=== PATIENT | female | born 1950 | race Caucasian/White ===

== ENCOUNTER 2016-11-12 08:52 | Emergency (ER) | payer OTHER, MEDICARE ==
[~2016-11-12] VITALS: Ht 160 cm; Wt 117.9 kg
[~2016-11-12 08:52] MED LIST: ALAWAY10 ML OPH; AUGMENTIN 875-1 EACH PO; CARDIZEM CD180 M1 PO; COUMADIN1 M1 PO; CRESTOR10 M1 PO; CYCLOBENZAPRINE10 M1 PO; FUROSEMIDE40 M1 PO; GABAPENTIN300 M2 PO; LATANOPROST2.5 ML OPH; LEVEMIR FL100 UNIT/1 SC; LEVSIN0.125 M1 PO; LISINOPRIL10 M1 PO; MEDROL DOSEPAK1 PAC PO; METOPROLOL TAR100 M1 PO; NASONEX17 GM NASB; NEXIUM40 M1 PO; OFLOXACIN5 ML OD; PROAIR HFA0.09 MG/Ac INH; ROBITUSSIN W/CO10 ML PO; WARFARIN SODIUM2 M1 PO; ZITHROMAX Z-PA250 MG PO
[2016-11-12 08:58] VITALS: BP 143/83
[2016-11-12] MEDS ORDERED: ULTRAM50 M1 PO (09:33)
[2016-11-12] MEDS ORDERED: PROAIR HFA8.5 GM INH (09:33)
--- NOTE | 2016-11-12 09:33 | ED THROAT/DENTAL COMPLAINT ---
History of Present Illness General Chief Complaint: Sore Throat, Dental Pain Stated Complaint: EAR PAIN, SORE THROAT, CONGESTION Source: patient Exam Limitations: no limitations Vital Signs & Intake/Output Vital Signs & Intake/Output Vital Signs Date Time Temp Pulse Resp B/P Pulse O2 O2 Flow FiO2 Ox Delivery Rate 11/12 0858 98.7 81 20 143/83 97 Room Air Allergies Coded Allergies: aspirin (NAUSEA 05/26/16) shellfish derived (RED FACED 05/26/16) Reconcile Medications Acetaminophen (Tylenol Extra Strength) 500 MG TABLET 1 TAB PO TID PAIN ( Reported) Albuterol Sulfate (Proair Hfa) 90 MCG HFA.AER.AD 2 PUF INH Q4-6 PRN PRN BREATHING PROBLEMS (Reported) Azithromycin (Zithromax) 250 MG TABLET 1 DP PO AD BRONCHITIS 2 the first day followed by 1 for days 2-5 Cholecalciferol (Vitamin D3) 1,000 UNIT TABLET 1 TAB PO DAILY SUPPLEMENT ( Reported) Ciprofloxacin HCl/Dexameth (Ciprodex Otic Suspension) 0.3 %-0.1 % DROPS.SUSP 4 GTT OT BID OTITIS EXTERNA Cyclobenzaprine HCl 10 MG TABLET 1 TAB PO BID MUSCLE SPASMS (Reported) Diltiazem HCl (Cardizem Cd) 180 MG CAP.ER.24H 1 CAP PO DAILY HEART (Reported) Esomeprazole (Nexium) 40 MG CAPSULE.DR 1 CAP PO DAILY AC GI (Reported) Furosemide 40 MG TABLET 1 TAB PO DAILY DIURETIC (Reported) Gabapentin 300 MG CAPSULE 1 CAP PO TID NERVE PAIN (Reported) Hyoscyamine (Levsin) 0.125 MG TABLET 1 TAB PO TID PRN ABD CRAMPS (Reported) Insulin Detemir (Levemir Flextouch) 100 UNIT/1 ML INSULN.PEN 30 UNITS SC QAM DIABETES (Reported) Latanoprost 2.5 ML DROPS 1 GTT OPH QPM BOTH EYES (Reported) Lisinopril 10 MG TABLET 1 TAB PO DAILY BP (Reported) Meloxicam 7.5 MG TABLET 1 TAB PO DAILY PAIN (Reported) Metoprolol Tartrate 100 MG TABLET 1 TAB PO BID HEART/BP (Reported) Mometasone Furoate (Nasonex) 17 GM SPRAY.PUMP 2 SPRAY NASB DAILY ALLERGIES ( Reported) Multivit-Min/Folic Acid/Biotin (Women Multivit W-Biotin Gummy) 200 MCG-300 MCG TAB.CHEW 1 TAB PO DAILY SUPPLEMENT (Reported) [place]-3 Fatty Acids/Fish Oil (Fish Oil 1,200 MG Softgel) 360 MG-1,200 MG CAPSULE 1 CAP PO BID SUPPLEMENT (Reported) Potassium Chloride 10 MEQ TABLET.ER 1 TAB PO DAILY SUPPLEMENT (Reported) Rosuvastatin Calcium (Crestor) 10 MG TABLET 1 TAB PO DAILY CHOLESTEROL ( Reported) Tramadol HCl (Ultram) 50 MG TABLET 1 TAB PO Q6P PRN PAIN (Reported) Tramadol HCl 50 MG TABLET 1 TAB PO BIDP PRN PAIN Vitamin E Mixed (Vitamin E) 400 UNIT TABLET 1 TAB PO DAILY SUPPLEMENT ( Reported) Warfarin Sodium 2 MG TABLET 1 TAB PO AD BLOOD THINNER (Reported) Warfarin Sodium (Coumadin) 1 MG TABLET 1 TAB PO AD BLOOD THINNER (Reported) Triage Note: 66 Y/O FEMALE C/O URI SYMPTOMS X A FEW WEEKS; FINISHED ANTIBIOTICS 2-3 WEEKS AGO FOR SINUS INFECTION BUT STATES HER SYMPTOMS CONTINUE. C/O COUGH, HEADACHES, CONGESTION AND L EAR PAIN. AFEBRILE. Triage Nurses Notes Reviewed? yes Onset: Gradual Duration: week(s): (FEW) Timing: recent history Injury Environment: home Severity: moderate Associated Symptoms: LEFT EAR PAIN, COUGH, SPUTUM, FACIAL PAIN, HEADACHE HPI: This is a 66 year old female who presents with a prolonged history of symptoms. Prior to placido she started spitting up green sputum and was put on a 10 day course of augmentin. She reports feeling better for a short time but then reports return of symptoms 1 week later. Sore throat, ear ache, cough. Patient reports left sided headache, subjective temperature last night. Positive nausea. Also reports for the past 3 days sputum which is blood tinged. Past History Travel History Traveled to [place] past 21 day No Medical History Any Pertinent Medical History? see below for history Neurological: peripheral neuropathy EENT: glaucoma, ABN AUDITORY PERCEPTION Cardiovascular: AFIB, CHF, hypertension, hyperlipidemia Respiratory: bronchitis, COPD Gastrointestinal: GERD, irritable bowel syndrome Hepatic: NONE Renal: NONE Musculoskeletal: chronic back pain, SHOULDER JOINT PAIN BILATERAL KNEE PAIN Psychiatric: NONE Endocrine: diabetes History of MRSA: No History of VRE: No History of CDIFF: No Pneumonia Vaccine: 09/27/10 Influenza Vaccine: 09/24/10 Tetanus Vaccine: 12/21/12 Surgical History Surgical History: non-contributory Psychosocial History Who do you live with Patient/Self Services at Home None What is your primary language Kiswahili Tobacco Use: Never used Family History Family History, If Any: FATHER (tb, CHF). MOTHER (pancreatic ca). Hx Contributory? No Review of Systems Review of Systems Constitutional: Reports: fever. Denies: chills. EENTM: Reports: ear pain. Respiratory: Reports: cough, sputum production. Cardiovascular: Denies: chest pain. GI: Denies: abdominal pain. Genitourinary: Reports: no symptoms. Musculoskeletal: Reports: no symptoms. Skin: Reports: no symptoms. Neurological/Psychological: Reports: no symptoms. Hematologic/Endocrine: Reports: bleeding (IN SPUTUM). Denies: bruising. Immunologic/Allergic: Denies: splenectomy, HIV/AIDS. All Other Systems: Reviewed and Negative Physical Exam Physical Exam General Appearance: well developed/nourished, alert, awake, anxious, mild distress, TEARFUL ON EXAMINATION Head: atraumatic, normal appearance Eyes: Bilateral: normal appearance, PERRL, EOMI. Ears: Left: discharge, swelling, tenderness, Tympanic dull. Nose: DRIED BLOOD IN RIGHT NARE Mouth/Throat: PHARYNGEAL ERYTHEMA, YELLOW MUCUS IN POSTERIOR PHARYNX Neck: normal inspection, supple, full range of motion Cardiovascular/Respiratory: normal breath sounds, no respiratory distress Neurologic/Psych: no motor/sensory deficits, awake, alert, oriented x 3 Skin: intact, normal color, warm/dry Core Measures ACS in differential dx? No Severe Sepsis Present: No Septic Shock Present: No Progress Differential Diagnosis: SINUSITIS, PHARYNGITIS, OTITIS MEDIA, OTITIS EXTERNA, uri Plan of Care: Orders Procedure Date/time Status THROAT CULTURE W/QUICK STREP 11/12 0837 Active Patient will be treated for otitis externa, URI. Lungs are clear to auscultation. She does have some thick yellow sputum with scant blood when coughing and blowing her nose. Patient is requesting azithromycin as she states the Augmentin did not make her feel well. She states the Z-Eduardo as worked for her in previous instances. (ALBERTA MERCEDES,KAYLA) Departure Departure Time of Disposition: 943 Disposition: HOME OR SELF CARE Condition: Stable Clinical Impression Primary Impression: Otitis externa Secondary Impressions: Sinusitis Referrals: MARCO A HERNANDEZ MD (PCP/Family) Additional Instructions: Take Z-Eduardo as directed. Use the Ciprodex drops as prescribed. Your prescriptions are at [facility]. Follow-up with your primary care doctor in the office, return as needed. Departure Forms: Customer Survey General Discharge Information Prescriptions: Current Visit Scripts Azithromycin (Zithromax) 1 DP PO AD #6 TAB 2 the first day followed by 1 for days 2-5 Ciprofloxacin HCl/Dexameth (Ciprodex Otic Suspension) 4 GTT OT BID #1 BOT Tramadol HCl 1 TAB PO BIDP PRN PAIN #10 TAB
[2016-11-12] MEDS ORDERED: TYLENOL EXTRA500 M2 PO (09:34)
[2016-11-12] MEDS ORDERED: WOMEN MULTIVIT1 EACH PO (09:34)
[2016-11-12] MEDS ORDERED: MELOXICAM7.5 M1 PO (09:36)
[2016-11-12] MEDS ORDERED: POTASSIUM CHLO10 ME4 PO (09:36)
[2016-11-12] MEDS ORDERED: VITAMIN D31000 UNI2 PO (09:37)
[2016-11-12] MEDS ORDERED: VITAMIN E400 UNI2 PO (09:37)
[2016-11-12] MEDS ORDERED: FISH OIL 1,2001 EAC4 PO (09:38)
[2016-11-12] MEDS ORDERED: CIPRODEX OTIC7.5 ML OT (09:46)
[2016-11-12] MEDS ORDERED: ZITHROMAX250 M2 PO (09:46)
[2016-11-12] MEDS ORDERED: TRAMADOL HCL50 M1 PO (09:50)
[2016-11-13] MEDS ORDERED: AUGMENTIN 875-1 EACH PO (14:20)
[2016-11-13] MEDS ORDERED: PERCOCET 5-3251 EACH PO (14:20)
== END 2016-11-12 09:51 ==
LOC: ERH 08:52
DX: J32.9 Chronic sinusitis, unspecified (principal); H60.92 Unspecified otitis externa, left ear

== ENCOUNTER 2016-11-13 10:28 | Emergency (ER) | payer OTHER, MEDICARE ==
[~2016-11-13] VITALS: Ht 160 cm; Wt 74.8 kg
[~2016-11-13 10:28] MED LIST changes: +CIPRODEX OTIC7.5 ML OT; +FISH OIL 1,2001 EAC4 PO; +MELOXICAM7.5 M1 PO; +POTASSIUM CHLO10 ME4 PO; +PROAIR HFA8.5 GM INH; +TRAMADOL HCL50 M1 PO; +TYLENOL EXTRA500 M2 PO; +ULTRAM50 M1 PO; +VITAMIN D31000 UNI2 PO; +VITAMIN E400 UNI2 PO; +WOMEN MULTIVIT1 EACH PO; +ZITHROMAX250 M2 PO
[2016-11-13 11:36] LABS: ABSOLUTE BASOPHIL COUNT 0.1 /CUMM (0.0-0.2); ABSOLUTE EOSINOPHIL COUNT 0 /CUMM (0.0-0.7); ABSOLUTE LYMPH COUNT 1.2 /CUMM (1.2-3.4); BASOPHIL % 0.5 % (0.0-2.0); EOSINOPHIL % 0.2 % (0-5); GRANULOCYTE % 78.1 % (42.2-75.2); HEMATOCRIT 38.7 % (37-47); MEAN CORPUSCULAR HGB 35.5 PG (27.0-31.0); MEAN CORPUSCULAR HGB CONC 33.8 G/DL (33.0-37.0); MEAN CORPUSCULAR VOLUME 105.1 FL (81.0-99.0); MEAN PLATELET VOLUME 8.7 FL (7.4-10.4); PLATELET COUNT 141 /CUMM (130-400); RBC DISTRIBUTION WIDTH 15.8 % (11.5-14.5); RED BLOOD CELL CT 3.69 /CUMM (4.20-5.40); WHITE BLOOD CELL COUNT 10.3 /CUMM (4.8-10.8)
--- NOTE | 2016-11-13 11:45 | ED GENERAL ADULT ---
History of Present Illness General Chief Complaint: General Adult Stated Complaint: BIBA BLOOD COMING FROM MOUTH,EAR,NOSE Source: patient Exam Limitations: no limitations Vital Signs & Intake/Output Vital Signs & Intake/Output Vital Signs Date Time Temp Pulse Resp B/P Pulse O2 O2 Flow FiO2 Ox Delivery Rate 11/13 1410 72 22 118/71 98 11/13 1333 98.1 77 18 125/70 97 Room Air 11/13 1100 96.2 78 18 122/83 96 Room Air Allergies Coded Allergies: aspirin (NAUSEA 05/26/16) shellfish derived (RED FACED 05/26/16) Reconcile Medications Acetaminophen (Tylenol Extra Strength) 500 MG TABLET 1 TAB PO TID PAIN ( Reported) Albuterol Sulfate (Proair Hfa) 90 MCG HFA.AER.AD 2 PUF INH Q4-6 PRN PRN BREATHING PROBLEMS (Reported) Amoxicillin/Potassium Clav (Augmentin 875-125 Tablet) 875 MG-125 MG TABLET 1 TAB PO BID OTITIS EXTERNA Azithromycin (Zithromax) 250 MG TABLET 1 DP PO AD BRONCHITIS 2 the first day followed by 1 for days 2-5 Cholecalciferol (Vitamin D3) 1,000 UNIT TABLET 1 TAB PO DAILY SUPPLEMENT ( Reported) Ciprofloxacin HCl/Dexameth (Ciprodex Otic Suspension) 0.3 %-0.1 % DROPS.SUSP 4 GTT OT BID OTITIS EXTERNA Cyclobenzaprine HCl 10 MG TABLET 1 TAB PO BID MUSCLE SPASMS (Reported) Diltiazem HCl (Cardizem Cd) 180 MG CAP.ER.24H 1 CAP PO DAILY HEART (Reported) Esomeprazole (Nexium) 40 MG CAPSULE.DR 1 CAP PO DAILY AC GI (Reported) Furosemide 40 MG TABLET 1 TAB PO DAILY DIURETIC (Reported) Gabapentin 300 MG CAPSULE 1 CAP PO TID NERVE PAIN (Reported) Hyoscyamine (Levsin) 0.125 MG TABLET 1 TAB PO TID PRN ABD CRAMPS (Reported) Insulin Detemir (Levemir Flextouch) 100 UNIT/1 ML INSULN.PEN 30 UNITS SC QAM DIABETES (Reported) Latanoprost 2.5 ML DROPS 1 GTT OPH QPM BOTH EYES (Reported) Lisinopril 10 MG TABLET 1 TAB PO DAILY BP (Reported) Meloxicam 7.5 MG TABLET 1 TAB PO DAILY PAIN (Reported) Metoprolol Tartrate 100 MG TABLET 1 TAB PO BID HEART/BP (Reported) Mometasone Furoate (Nasonex) 17 GM SPRAY.PUMP 2 SPRAY NASB DAILY ALLERGIES ( Reported) Multivit-Min/Folic Acid/Biotin (Women Multivit W-Biotin Gummy) 200 MCG-300 MCG TAB.CHEW 1 TAB PO DAILY SUPPLEMENT (Reported) [place]-3 Fatty Acids/Fish Oil (Fish Oil 1,200 MG Softgel) 360 MG-1,200 MG CAPSULE 1 CAP PO BID SUPPLEMENT (Reported) Oxycodone HCl/Acetaminophen (Percocet 5-325 MG Tablet) 5 MG-325 MG TABLET 1 TAB PO Q6HR PRN PAIN Potassium Chloride 10 MEQ TABLET.ER 1 TAB PO DAILY SUPPLEMENT (Reported) Rosuvastatin Calcium (Crestor) 10 MG TABLET 1 TAB PO DAILY CHOLESTEROL ( Reported) Tramadol HCl (Ultram) 50 MG TABLET 1 TAB PO Q6P PRN PAIN (Reported) Tramadol HCl 50 MG TABLET 1 TAB PO BIDP PRN PAIN Vitamin E Mixed (Vitamin E) 400 UNIT TABLET 1 TAB PO DAILY SUPPLEMENT ( Reported) Warfarin Sodium 2 MG TABLET 1 TAB PO AD BLOOD THINNER (Reported) Warfarin Sodium (Coumadin) 1 MG TABLET 1 TAB PO AD BLOOD THINNER (Reported) Triage Note: C/O BLEEDING FROM LEFT EAR AND AND THROAT. AND WHILE BRUSHING TEETH THIS AM. SEEN [facility] YESTERDAY FOR SINUS INFECTION. PUT ON ABX, AND EAR DROPS. ALSO C/O LEFT EAR PAIN. Triage Nurses Notes Reviewed? yes Onset: Gradual Duration: day(s): (1) Timing: no prior history Injury Environment: home Severity: moderate Severity Numbers: 8 No Modifying Factors: none HPI: Patient is a 66-year-old female presenting to the emergency department with chief complaint of upper respiratory congestion, left-sided headache thing going on for the past several days. She was seen and evaluated here yesterday diagnosed with an upper respiratory infection and started on a Z-Eduardo. Patient takes Coumadin for A. fib. She reports that overnight the headache became worse and the sinus pressure became worse. She woke up this morning and noticed that she was bleeding from her left ear and her right nostril. Denies any trauma. She reports that the left ear hearing feels muffled. Denies taking anything in her ear. Denies any ringing in the ear. Denies any confusion nausea vomiting fevers or chills. No chest pain or shortness of breath. No abdominal pain. No urinary symptoms here denies any visual changes. No confusion. She called her primary care physician this morning who told her to come to the emergency department immediately for evaluation. (YVONNE HARDY) Past History Travel History Traveled to [place] past 21 day No Medical History Any Pertinent Medical History? see below for history Neurological: peripheral neuropathy EENT: glaucoma, ABN AUDITORY PERCEPTION Cardiovascular: AFIB, CHF, hypertension, hyperlipidemia Respiratory: bronchitis, COPD Gastrointestinal: GERD, irritable bowel syndrome Hepatic: NONE Renal: NONE Musculoskeletal: chronic back pain, SHOULDER JOINT PAIN BILATERAL KNEE PAIN Psychiatric: NONE Endocrine: diabetes History of MRSA: No History of VRE: No History of CDIFF: No Tetanus Vaccine: 12/21/12 Surgical History Surgical History: non-contributory Psychosocial History Who do you live with Patient/Self Services at Home None What is your primary language Khmer Tobacco Use: Never used ETOH Use: occasional use Family History Family History, If Any: FATHER (tb, CHF). MOTHER (pancreatic ca). Hx Contributory? No (YVONNE HARDY) Review of Systems Review of Systems Constitutional: Reports: no symptoms. Comments Review of systems: See HPI, All other systems negative. Constitutional, no chills fever or weight loss HEENT: No visual changes no sore throat Cardiovascular: No chest pain ,palpitation , orthopnea or ankle swelling Skin, no jaundice no rashes Respiratory: No dyspnea cough sputum or hemoptysis GI: No nausea no vomiting : No dysuria No hematuria Muscle skeletal: no back pain, no neck pain, Neurologic: No numbness no confusion Psych: POSITIVE STRESS Heme/endocrine: No bruising no bleeding no polyuria or polydipsia Immunology: No splenectomy or history of AIDS (YVONNE HARDY) Physical Exam Physical Exam General Appearance: well developed/nourished, no apparent distress, alert, awake , comfortable Comments: Well-developed well-nourished person in no acute distress HEENT: extraocular motion intact, no nystagmus. Pupils equally round and reactive to light and accommodation. Right naris has dried blood, no septal hematoma noted. External auditory canal and Tympanic membranE clear on the right side. Unable to visualize left TM secondary to serosanguineous fluid in the external canal.. The external canal on the left is also very erythematous and swollen. Pharynx normal. No swelling or edema. Tenderness to palpation over the preauricular and postauricular area. No redness noted in these areas. Neck: Supple, no lymphadenopathy, normal range of motion without pain or tenderness Back: Nontender Cardiovascular: Regular rate and rhythms no murmurs rubs or gallops, normal JVP Respiratory: Chest nontender. No respiratory distress.breath sounds clear to auscultation bilaterally Abdomen: Soft, obese, nontender nondistended, no appreciable organomegaly. Normal bowel sounds. No ascites Extremity: No edema, full range of motion of upper and lower extremities. Neuro: Alert oriented x3, motor sensory normal, cranial nerves II through XII grossly intact. Cerebellar testing is unremarkable. Skin: No appreciable rash on exposed skin, skin is warm and dry. Psych: Appears anxious, tearful. Core Measures ACS in differential dx? No CVA/TIA Diagnosis: No Severe Sepsis Present: No Septic Shock Present: No (SERGO GALLEGOS,YVONNE) Progress Differential Diagnoses I considered the following diagnoses in my evaluation of the patient: CSF leak, intracranial hemorrhage, mastoiditis, otitis externa, malignant otitis, upper respiratory infection, hypo-coagulopathy Plan of Care: Orders Procedure Date/time Status PROTHROMBIN TIME 11/13 1118 Complete COMPREHENSIVE METABOLIC PANEL 11/13 1118 Complete CBC WITHOUT DIFFERENTIAL 11/13 111 Complete Laboratory Tests 11/13/16 1129: Anion Gap 10, Estimated GFR 56 L, BUN/Creatinine Ratio 18.0, Glucose 162 H, Calcium 9.1, Total Bilirubin 1.0, AST 20, ALT 34, Alkaline Phosphatase 85, Total Protein 6.5, Albumin 3.7, Globulin 2.8, Albumin/Globulin Ratio 1.3, PT 30.4 H, INR 2.93 H, CBC w Diff NO MAN DIFF REQ, RBC 3.69 L, MCV 105.1 H, MCH 35.5 H, RDW 15.8 H, MPV 8.7, Gran % 78.1 H, Lymphocytes % 11.9 L, Monocytes % 9.3, Eosinophils % 0.2, Basophils % 0.5, Absolute Granulocytes 8.0 H, Absolute Lymphocytes 1.2, Absolute Monocytes 1.0 H, Absolute Eosinophils 0, Absolute Basophils 0.1, PUBS MCHC 33.8 Diagnostic Imaging: Viewed by Me: Radiology Read, CT Scan. Discussed w/RAD: Radiology Read, CT Scan. Radiology Impression: ORDERING PHYSICIAN: YVONNE GALLEGOS SERVICE DATE: 11/13/16 EXAM TYPE: CAT - CT HEAD WO IV CONTRAST EXAMINATION: CT HEAD WITHOUT CONTRAST CLINICAL INFORMATION: Coumadin severe left-sided headache COMPARISON: None. TECHNIQUE: Contiguous axial imaging was performed from the skull base to vertex without intravenous administration of contrast. No acute finding. No hemorrhage, midline shift or mass effect. The basal cisterns are patent. The posterior fossa risk grossly within normal limits. No extra-axial collection. IMPRESSION: Negative acute noncontrast CT of the brain., : LOCATION: [facility] ORDERING PHYSICIAN: YVONNE GALLEGOS SERVICE DATE: EXAM TYPE: CAT - CT INT AUD CANALS WO IV CONT EXAMINATION: CT INTERNAL AUDITORY CANALS WITHOUT CONTRAST CLINICAL INFORMATION: Treatment. Severe left-sided headache. Left ear pain. Serosanguineous fluid. COMPARISON: CT scan of the orbits 05/26/2016. TECHNIQUE: Contiguous axial imaging was performed without intravenous administration of contrast. DLP: 156.5 mGy-cm. FINDINGS: Left temporal bone: There is a mixed air and fluid filling the left external auditory canal. There is also near total opacification of the left middle ear cavity and mastoid air cells. The ossicular chain is intact and there is no evidence of coalescence or worrisome osseous erosion. The otic capsule is intact. Labyrinthine structures are normal. The internal auditory canal is unremarkable. Right temporal bone: The external auditory canal is normal and there is no abnormal thickening of the tympanic membrane. The ossicular chain is intact. The middle ear cavity and mastoid air cells are well aerated. The otic capsule is intact. Labyrinthine structures are normal. The internal auditory canal is unremarkable. Other: [id number] paranasal sinus disease is partially visualized within the maxillary sinuses and ethmoid air cells. The temporomandibular joints are symmetric. IMPRESSION: There is near total opacification of the left middle ear cavity and mastoid air cells with fluid or debris within the left external auditory canal. Findings are most consistent with acute otomastoiditis and otitis externa with no evidence of coalescence, ossicular destruction, or worrisome erosive changes. Initial ED EKG: none Comments: Patient was given oxycodone for pain on arrival. Concerned about extensive otitis externa or mastoiditis. Patient will have CT of the head and AUral canals. Patient was informed of all imaging results and lab results. Spoke with , covering ear nose and throat, he feels that this patient has extensive otitis externa, not so much concern at mastoiditis as patient does have. Given her tenderness on exam and external canal is very erythematous and swollen. Patient will be switched to Augmentin. She'll continue Ciprodex that she has artificial that medication. Patient also prescribed pain medication. She has been scheduled for an appointment for 10:15 tomorrow morning and [place] with Dr. Bullock. Patient reports that she will be able to make the appointment. She will return to the emergency department for any worsening symptoms or concerns. (YVONNE HARDY) Departure Departure Time of Disposition: 1420 Disposition: HOME OR SELF CARE Condition: Stable Clinical Impression Primary Impression: Otitis externa Qualifiers: Otitis externa type: unspecified type Laterality: left Chronicity: acute Qualified Code: H60.502 - Unspecified acute noninfective otitis externa, left ear Referrals: WALDEMAR MERCEDES,STAN BULLOCK MD,WOLFGANG HERNANDEZ MD,MARCO A (PCP/Family) Additional Instructions: Follow-up with ear nose and throat doctor tomorrow morning as scheduled. Take Augmentin as prescribed. Stop taking Z-Eduardo. Continue using eardrops, Ciprodex as prescribed. Take Percocet as prescribed for pain. Return for worsening symptoms or concerns. Departure Forms: Customer Survey General Discharge Information Prescriptions: Current Visit Scripts Amoxicillin/Potassium Clav (Augmentin 875-125 Tablet) 1 TAB PO BID #20 TAB Oxycodone HCl/Acetaminophen (Percocet 5-325 MG Tablet) 1 TAB PO Q6HR PRN PAIN #10 TAB (YVONNE HARDY) PA/KITCHEN BATH DESIGNER Co-Sign Statement Statement: ED Attending supervision documentation- x I saw and evaluated the patient. I have also reviewed all the pertinent lab results and diagnostic results. I agree with the findings and the plan of care as documented in the PA's/KITCHEN BATH DESIGNER's documentation. [] I have reviewed the ED Record and agree with the PA's/KITCHEN BATH DESIGNER's documentation. [] Additions or exceptions (if any) to the PAs/KITCHEN BATH DESIGNER's note and plan are summarized below: [] (NORY MERCEDES,ELVIRA) Critical Care Note Critical Care Note Critical Care Time: non-applicable (SERGO GALLEGOS,YVONNE)
[2016-11-13 11:50] LABS: PT 30.4 SEC (9.4-12.5)
--- NOTE | 2016-11-13 13:25 | RADIOLOGY REPORT ---
EXAMINATION: XR PORTABLE CHEST CLINICAL INFORMATION: Coughing up blood COMPARISON: November 01, 2015 TECHNIQUE: Portable view of the chest was obtained. FINDINGS: No significant abnormality is noted involving the heart, lungs, mediastinum, bony thorax or soft tissues. IMPRESSION: No acute disease.
--- NOTE | 2016-11-13 13:35 | CT SCAN REPORT ---
EXAMINATION: CT HEAD WITHOUT CONTRAST CLINICAL INFORMATION: Coumadin severe left-sided headache COMPARISON: None. TECHNIQUE: Contiguous axial imaging was performed from the skull base to vertex without intravenous administration of contrast. No acute finding. No hemorrhage, midline shift or mass effect. The basal cisterns are patent. The posterior fossa risk grossly within normal limits. No extra-axial collection. IMPRESSION: Negative acute noncontrast CT of the brain.
--- NOTE | 2016-11-13 13:55 | CT SCAN REPORT ---
EXAMINATION: CT INTERNAL AUDITORY CANALS WITHOUT CONTRAST CLINICAL INFORMATION: Treatment. Severe left-sided headache. Left ear pain. Serosanguineous fluid. COMPARISON: CT scan of the orbits 05/26/2016. TECHNIQUE: Contiguous axial imaging was performed without intravenous administration of contrast. DLP: 156.5 mGy-cm. FINDINGS: Left temporal bone: There is a mixed air and fluid filling the left external auditory canal. There is also near total opacification of the left middle ear cavity and mastoid air cells. The ossicular chain is intact and there is no evidence of coalescence or worrisome osseous erosion. The otic capsule is intact. Labyrinthine structures are normal. The internal auditory canal is unremarkable. Right temporal bone: The external auditory canal is normal and there is no abnormal thickening of the tympanic membrane. The ossicular chain is intact. The middle ear cavity and mastoid air cells are well aerated. The otic capsule is intact. Labyrinthine structures are normal. The internal auditory canal is unremarkable. Other: [id number] paranasal sinus disease is partially visualized within the maxillary sinuses and ethmoid air cells. The temporomandibular joints are symmetric. IMPRESSION: There is near total opacification of the left middle ear cavity and mastoid air cells with fluid or debris within the left external auditory canal. Findings are most consistent with acute otomastoiditis and otitis externa with no evidence of coalescence, ossicular destruction, or worrisome erosive changes.
[2016-11-13 14:10] VITALS: BP 118/71
[2016-11-13] MEDS ORDERED: PERCOCET 5-3251 EACH PO (14:20)
[2016-11-13] MEDS ORDERED: AUGMENTIN 875-1 EACH PO (14:20)
== END 2016-11-13 14:34 ==
LOC: ERH 10:28
PROVIDERS: Emergency Medicine
DX: H60.92 Unspecified otitis externa, left ear (principal); K13.79 Other lesions of oral mucosa; R51 Headache

== ENCOUNTER 2017-12-24 19:12 | Emergency (ER) | payer OTHER, MEDICARE ==
[~2017-12-24] VITALS: Ht 162.6 cm; Wt 136.1 kg
[~2017-12-24 19:12] MED LIST changes: +KEFLEX500 M1 PO; +PERCOCET 5-3251 EACH PO
[2017-12-24 20:45] LABS: ABSOLUTE BASOPHIL COUNT 0 /CUMM (0.0-0.2); ABSOLUTE EOSINOPHIL COUNT 0.1 /CUMM (0.0-0.7); ABSOLUTE GRANULOCYTE CT 3.8 /CUMM (1.4-6.5); ABSOLUTE LYMPH COUNT 1.6 /CUMM (1.2-3.4); ABSOLUTE MONOCYTE COUNT 0.6 /CUMM (0.10-0.60); BASOPHIL % 0.7 % (0.0-2.0); EOSINOPHIL % 1.8 % (0-5); GRANULOCYTE % 61.8 % (42.2-75.2); HEMATOCRIT 37.7 % (37-47); MEAN CORPUSCULAR HGB 34.9 PG (27.0-31.0); MEAN CORPUSCULAR HGB CONC 33.6 G/DL (33.0-37.0); MEAN PLATELET VOLUME 8.9 FL (7.4-10.4); PLATELET COUNT 137 /CUMM (130-400); RBC DISTRIBUTION WIDTH 14.4 % (11.5-14.5); RED BLOOD CELL CT 3.63 /CUMM (4.20-5.40); WHITE BLOOD CELL COUNT 6.2 /CUMM (4.8-10.8)
--- NOTE | 2017-12-24 23:14 | ED GENERAL ADULT ---
History of Present Illness General Chief Complaint: General Adult Stated Complaint: SIB PCP TO GET AN IV FRO MAGNISIUM BEING 0.9 Source: patient, old records Exam Limitations: no limitations Vital Signs & Intake/Output Vital Signs & Intake/Output Vital Signs Date Time Temp Pulse Resp B/P B/P Pulse O2 O2 Flow FiO2 Mean Ox Delivery Rate 12/24 2335 88 16 121/78 97 Room Air 12/24 1930 97.4 95 18 115/79 97 Room Air ED Intake and Output 12/25 0000 12/24 1200 Intake Total 0 Output Total Balance 0 Intake, Oral 0 Patient 300 lb Weight Allergies Coded Allergies: aspirin (NAUSEA 05/26/16) shellfish derived (RED FACED 05/26/16) Reconcile Medications Acetaminophen (Tylenol Extra Strength) 500 MG TABLET 1 TAB PO TID PAIN ( Reported) Albuterol Sulfate (Proair Hfa) 90 MCG HFA.AER.AD 2 PUF INH Q4-6 PRN PRN BREATHING PROBLEMS (Reported) Amoxicillin/Potassium Clav (Augmentin 875-125 Tablet) 875 MG-125 MG TABLET 1 TAB PO BID OTITIS EXTERNA Azithromycin (Zithromax) 250 MG TABLET 1 DP PO AD BRONCHITIS 2 the first day followed by 1 for days 2-5 Cephalexin (Keflex) 500 MG CAPSULE 1 CAP PO TID CELLULITIS Cholecalciferol (Vitamin D3) 1,000 UNIT TABLET 1 TAB PO DAILY SUPPLEMENT ( Reported) Ciprofloxacin HCl/Dexameth (Ciprodex Otic Suspension) 0.3 %-0.1 % DROPS.SUSP 4 GTT OT BID OTITIS EXTERNA Cyclobenzaprine HCl 10 MG TABLET 1 TAB PO BID MUSCLE SPASMS (Reported) Diltiazem HCl (Cardizem Cd) 180 MG CAP.ER.24H 1 CAP PO DAILY HEART (Reported) Esomeprazole (Nexium) 40 MG CAPSULE.DR 1 CAP PO DAILY AC GI (Reported) Furosemide 40 MG TABLET 1 TAB PO DAILY DIURETIC (Reported) Gabapentin 300 MG CAPSULE 1 CAP PO TID NERVE PAIN (Reported) Hyoscyamine (Levsin) 0.125 MG TABLET 1 TAB PO TID PRN ABD CRAMPS (Reported) Insulin Detemir (Levemir Flextouch) 100 UNIT/1 ML INSULN.PEN 30 UNITS SC QAM DIABETES (Reported) Latanoprost 2.5 ML DROPS 1 GTT OPH QPM BOTH EYES (Reported) Lisinopril 10 MG TABLET 1 TAB PO DAILY BP (Reported) Magnesium Oxide (Magnesium) 400 MG CAPSULE 1 CAP PO DAILY hypomagnesemia Meloxicam 7.5 MG TABLET 1 TAB PO DAILY PAIN (Reported) Metoprolol Tartrate 100 MG TABLET 1 TAB PO BID HEART/BP (Reported) Mometasone Furoate (Nasonex) 17 GM SPRAY.PUMP 2 SPRAY NASB DAILY ALLERGIES ( Reported) Multivit-Min/Folic Acid/Biotin (Women Multivit W-Biotin Gummy) 200 MCG-300 MCG TAB.CHEW 1 TAB PO DAILY SUPPLEMENT (Reported) [place]-3 Fatty Acids/Fish Oil (Fish Oil 1,200 MG Softgel) 360 MG-1,200 MG CAPSULE 1 CAP PO BID SUPPLEMENT (Reported) Oxycodone HCl/Acetaminophen (Percocet 5-325 MG Tablet) 5 MG-325 MG TABLET 1 TAB PO TID PRN PAIN Oxycodone HCl/Acetaminophen (Percocet 5-325 MG Tablet) 5 MG-325 MG TABLET 1 TAB PO Q6HR PRN PAIN Potassium Chloride 10 MEQ TABLET.ER 1 TAB PO DAILY SUPPLEMENT (Reported) Rosuvastatin Calcium (Crestor) 10 MG TABLET 1 TAB PO DAILY CHOLESTEROL ( Reported) Tramadol HCl (Ultram) 50 MG TABLET 1 TAB PO Q6P PRN PAIN (Reported) Tramadol HCl 50 MG TABLET 1 TAB PO BIDP PRN PAIN Vitamin E Mixed (Vitamin E) 400 UNIT TABLET 1 TAB PO DAILY SUPPLEMENT ( Reported) Warfarin Sodium 2 MG TABLET 1 TAB PO AD BLOOD THINNER (Reported) Warfarin Sodium (Coumadin) 1 MG TABLET 1 TAB PO AD BLOOD THINNER (Reported) Core Measure Meds Pre-Hospital coumadin Triage Note: PT TO TRIAGE S/P RECIEVING STANDARD BLOOD WORK RESULTS TODAY WITH A MAGNESIUM OF 0.9. PT WAS TOLD TO COME TO ER BY FOR IV INFUSION AND EKG D/T HX:AFIB AND CHF. PT REPORTS FEELING WELL AND HAS NO COMPLAINTS. Triage Nurses Notes Reviewed? yes Onset: Just prior to arrival Duration: hour(s):, constant, continues in ED Timing: recent history Injury Environment: home Severity: moderate No Modifying Factors: none LMP (ages 10-50): post menopausal : No Patient currently breastfeeds: No HPI: Prior to admission patient referred for repletion of magnesium. She denies fever chills nausea vomiting diarrhea abdominal pain chest pain shortness of breath headache dysuria rash bleeding. Past History Travel History Traveled to [place] past 21 day No Medical History Any Pertinent Medical History? 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 MOTHER (pancreatic ca). Hx Contributory? No Review of Systems Review of Systems Constitutional: Reports: no symptoms. EENTM: Reports: no symptoms. Respiratory: Reports: no symptoms. Cardiovascular: Reports: no symptoms. GI: Reports: no symptoms. Genitourinary: Reports: no symptoms. Musculoskeletal: Reports: no symptoms. Skin: Reports: no symptoms. Neurological/Psychological: Reports: no symptoms. Hematologic/Endocrine: Reports: no symptoms. Immunologic/Allergic: Reports: no symptoms. All Other Systems: Reviewed and Negative Physical Exam Physical Exam General Appearance: well developed/nourished, alert, awake, anxious, obese Head: atraumatic, normal appearance Eyes: Bilateral: normal appearance, PERRL, EOMI. Ears, Nose, Throat: normal pharynx, normal ENT inspection, hearing grossly normal Neck: normal inspection, supple, full range of motion, no midline tenderness Respiratory: normal breath sounds, chest non-tender, no respiratory distress, quiet respiration, lungs clear Cardiovascular: regular rate/rhythm, normal peripheral pulses, norml femoral pulses equa Peripheral Pulses: 4+ carotid (R), 4+ carotid (L) Gastrointestinal: normal bowel sounds, soft, non-tender, no organomegaly Back: normal inspection, normal range of motion, no vertebral tenderness Extremities: normal inspection, normal capillary refill, normal range of motion, no edema Neurologic/Psych: no motor/sensory deficits, awake, alert, oriented x 3, normal gait, normal mood/affect, cuff presser II-XII nml as tested Reflexes: 2+: bicep (R), bicep (L). Skin: intact, normal color, warm/dry Lymphatic: no anterior cervical cande Core Measures ACS in differential dx? No CVA/TIA Diagnosis: No Sepsis Present: No Sepsis Focused Exam Completed? No Progress Differential Diagnoses I considered the following diagnoses in my evaluation of the patient: Hypomagnesemia hypokalemia adverse medication reaction Plan of Care: Orders Procedure Date/time Status TROPONIN LEVEL 12/24 1938 Complete MAGNESIUM 12/24 1938 Complete COMPREHENSIVE METABOLIC PANEL 12/24 1938 Complete CBC WITHOUT DIFFERENTIAL 12/24 1938 Complete EKG 12/24 1931 Active Current Medications Sig/Estella Start time Last Medication Dose Stop Time Status Admin Magnesium Sulfate 2 GM ONCE ONE 12/24 2214 CAN 12/24 2215 Laboratory Tests 12/24/17 2016: Anion Gap 13, Estimated GFR 56 L, BUN/Creatinine Ratio 22.0, Glucose 135 H, Calcium 7.5 L, Magnesium 0.8 *L, Total Bilirubin 0.3, AST 23, ALT 27, Alkaline Phosphatase 53, Troponin I < 0.01, Total Protein 5.2 L, Albumin 3.0 L, Globulin 2.2, Albumin/Globulin Ratio 1.4, CBC w Diff NO MAN DIFF REQ, RBC 3.63 L, MCV 104.0 H, MCH 34.9 H, MCHC 33.6, RDW 14.4, MPV 8.9, Gran % 61.8, Lymphocytes % 26.3, Monocytes % 9.4 H, Eosinophils % 1.8, Basophils % 0.7, Absolute Granulocytes 3.8, Absolute Lymphocytes 1.6, Absolute Monocytes 0.6, Absolute Eosinophils 0.1, Absolute Basophils 0 Initial ED EKG: normal axis, normal intervals, normal p-waves, normal QRS complex, normal sinus rhythm, no ST T wave changes Prior EKG: unchanged Rhythm Strip: normal sinus rhythm Departure Departure Time of Disposition: 304 Disposition: HOME OR SELF CARE Condition: Stable Clinical Impression Primary Impression: Hypomagnesemia Secondary Impressions: Hypokalemia Referrals: Philip MERCEDES,Julius Ren (PCP/Family) Departure Forms: Customer Survey General Discharge Information Prescriptions: Current Visit Scripts Magnesium Oxide (Magnesium) 1 CAP PO DAILY #30 CAP Critical Care Note Critical Care Note Critical Care Time: non-applicable
[2017-12-25] MEDS ORDERED: MAGNESIUM400 M1 PO (03:07)
[2017-12-25 08:18] VITALS: BP 105/67
[2017-12-25] MEDS ORDERED: PANTOPRAZOLE SO40 M1 PO (08:23)
[2017-12-25] MEDS ORDERED: TRAMADOL HCL E100 MG PO (08:23)
== END 2017-12-25 08:26 ==
LOC: ERH 19:12
PROVIDERS: Physician Assistant Medical
DX: E83.42 Hypomagnesemia (principal); E87.6 Hypokalemia; I50.9 Heart failure, unspecified; I10 Essential (primary) hypertension; I48.91 Unspecified atrial fibrillation
CPT/HCPCS: 93005; 93010; 96374

== ENCOUNTER 2018-03-02 15:30 | Emergency (ER) | payer OTHER, MEDICARE ==
[~2018-03-02] VITALS: Ht 160 cm; Wt 120.2 kg
[~2018-03-02 15:30] MED LIST changes: +MAGNESIUM400 M1 PO; +PANTOPRAZOLE SO40 M1 PO; +TRAMADOL HCL E100 MG PO
[2018-03-02 15:54] VITALS: BP 110/64
[2018-03-02 16:36] LABS: ABSOLUTE BASOPHIL COUNT 0 /CUMM (0.0-0.2); ABSOLUTE EOSINOPHIL COUNT 0.1 /CUMM (0.0-0.7); ABSOLUTE GRANULOCYTE CT 5.7 /CUMM (1.4-6.5); ABSOLUTE LYMPH COUNT 1.6 /CUMM (1.2-3.4); ABSOLUTE MONOCYTE COUNT 0.5 /CUMM (0.10-0.60); BASOPHIL % 0.6 % (0.0-2.0); EOSINOPHIL % 0.8 % (0-5); GRANULOCYTE % 72.1 % (42.2-75.2); HEMATOCRIT 43.3 % (37-47); MEAN CORPUSCULAR VOLUME 103.2 FL (81.0-99.0); MEAN PLATELET VOLUME 8.1 FL (7.4-10.4); PLATELET COUNT 239 /CUMM (130-400); RBC DISTRIBUTION WIDTH 14.5 % (11.5-14.5); WHITE BLOOD CELL COUNT 7.9 /CUMM (4.8-10.8)
--- NOTE | 2018-03-02 19:57 | ED ANKLE/FOOT INJURY COMPLAINT ---
History of Present Illness General Chief Complaint: Foot or Ankle Injury Stated Complaint: FOOT PAIN, SENT BY [facility] Source: patient, old records Exam Limitations: no limitations Vital Signs & Intake/Output Vital Signs & Intake/Output Vital Signs Date Time Temp Pulse Resp B/P B/P Pulse O2 O2 Flow FiO2 Mean Ox Delivery Rate 03/02 1554 97.7 94 18 110/64 94 Room Air Allergies Coded Allergies: aspirin (NAUSEA 05/26/16) shellfish derived (RED FACED 05/26/16) Reconcile Medications Albuterol Sulfate (Proair Hfa) 90 MCG HFA.AER.AD 2 PUF INH Q4-6 PRN PRN BREATHING PROBLEMS (Reported) Amoxicillin 250 MG CAPSULE 1 CAP PO TID CELLULITIS Cholecalciferol (Vitamin D3) 1,000 UNIT TABLET 1 TAB PO DAILY SUPPLEMENT ( Reported) Colchicine 0.6 MG TABLET 1 TAB PO BID GOUT Cyclobenzaprine HCl 10 MG TABLET 1 TAB PO BID MUSCLE SPASMS (Reported) Diltiazem HCl (Cardizem Cd) 180 MG CAP.ER.24H 1 CAP PO DAILY HEART (Reported) Furosemide 40 MG TABLET 1 TAB PO DAILY DIURETIC (Reported) Gabapentin 300 MG CAPSULE 1 CAP PO TID NERVE PAIN (Reported) Hyoscyamine (Levsin) 0.125 MG TABLET 1 TAB PO TID PRN ABD CRAMPS (Reported) Insulin Detemir (Levemir Flextouch) 100 UNIT/1 ML INSULN.PEN 30 UNITS SC QAM DIABETES (Reported) Latanoprost 2.5 ML DROPS 1 GTT OPH QPM BOTH EYES (Reported) Lisinopril 10 MG TABLET 1 TAB PO DAILY BP (Reported) Magnesium Oxide (Magnesium) 400 MG CAPSULE 1 CAP PO DAILY hypomagnesemia Meloxicam 7.5 MG TABLET 1 TAB PO DAILY PAIN (Reported) Metoprolol Tartrate 100 MG TABLET 1 TAB PO BID HEART/BP (Reported) Mometasone Furoate (Nasonex) 17 GM SPRAY.PUMP 2 SPRAY NASB DAILY ALLERGIES ( Reported) Multivit-Min/Folic Acid/Biotin (Women Multivit W-Biotin Gummy) 200 MCG-300 MCG TAB.CHEW 1 TAB PO DAILY SUPPLEMENT (Reported) [place]-3 Fatty Acids/Fish Oil (Fish Oil 1,200 MG Softgel) 360 MG-1,200 MG CAPSULE 1 CAP PO BID SUPPLEMENT (Reported) Oxycodone HCl/Acetaminophen (Percocet 5-325 MG Tablet) 5 MG-325 MG TABLET 1-2 TAB PO Q6P PRN PAIN Pantoprazole Sodium 40 MG TABLET.DR 1 TAB PO DAILY GI (Reported) Potassium Chloride 10 MEQ TABLET.ER 1 TAB PO DAILY SUPPLEMENT (Reported) Rosuvastatin Calcium (Crestor) 10 MG TABLET 1 TAB PO DAILY CHOLESTEROL ( Reported) Tramadol HCl (Tramadol HCl ER) 100 MG TAB.ER.24H 1 TAB PO DAILY PAIN ( Reported) Tramadol HCl 50 MG TABLET 1 TAB PO BIDP PRN PAIN Vitamin E Mixed (Vitamin E) 400 UNIT TABLET 1 TAB PO DAILY SUPPLEMENT ( Reported) Warfarin Sodium 2 MG TABLET 1 TAB PO MoWeFr BLOOD THINNER (Reported) Warfarin Sodium (Coumadin) 1 MG TABLET 1 TAB PO SuTuThSa BLOOD THINNER ( Reported) Triage Note: PT TO ER C/C RIGHT FOOT SWELLING AND PAIN X 4 DAYS ?CELLULITIS. AFEBRILE. WAS SEEN AT PAIN CLINIC EARLIER TODAY AND WAS ASSESSED. Triage Nurses Notes Reviewed? yes HPI: Patient presents with pain, redness and swelling to her right pinky toe. Symptoms started approximately 3 days ago. There is no known injury. Patient states the pain is worse when she is up and walking or sitting and the pain decreases when she is laying down with her foot elevated. There is no radiation of the pain. The pain is throbbing in nature. Patient was seen by her pain management doctor as well as her personnel adviser today and they both recommended that she come to the emergency department for evaluation. Patient is on Coumadin and the last time INR was checked was a few weeks ago and was normal and she is due to have another INR on Friday. Patient is unsure if she is ever had any pain and swelling to her great toe. Past History Travel History Traveled to [place] past 21 day No Medical History Any Pertinent Medical History? 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 MOTHER (pancreatic ca). Hx Contributory? No Review of Systems Review of Systems Constitutional: Reports: no symptoms. Respiratory: Reports: no symptoms. Cardiovascular: Reports: no symptoms. GI: Reports: no symptoms. Musculoskeletal: Reports: see HPI. Neurological/Psychological: Reports: no symptoms. Hematologic/Endocrine: Reports: no symptoms. Immunologic/Allergic: Reports: no symptoms. Physical Exam Physical Exam General Appearance: well developed/nourished, alert, awake, mild distress Eyes: Bilateral: PERRL, EOMI. Neck: normal inspection, supple, full range of motion Cardiovascular/Respiratory: normal breath sounds, normal peripheral pulses, regular rate/rhythm, no respiratory distress Leg/Knee/Thigh Left: normal range of motion, normal inspection Leg/Knee/Thigh Right: normal range of motion, normal inspection Foot Right: ERYTHEMA AND SWELLING TO RIGHT PINKY TOE. tHERE IS NO TRACKING ERYTHEMA. Neuro/Vascular: normal motor function, normal sensation Psychiatric: awake, alert, oriented x 3 Progress Differential Diagnosis: cellulitis, gout, sprain, contusion Plan of Care: Orders Procedure Date/time Status BLOOD CULTURE 03/02 1536 Active URIC ACID 03/02 1536 Complete TROPONIN LEVEL 03/02 1536 Complete LACTIC ACID 03/02 1536 Complete WESTERGREN SED RATE 03/02 1536 Complete C-REACTIVE PROTEIN 03/02 1536 Complete COMPREHENSIVE METABOLIC PANEL 03/02 1536 Complete CBC WITHOUT DIFFERENTIAL 03/02 1536 Complete Laboratory Tests 03/02/18 1836: Lactic Acid Cancelled 03/02/18 1615: CBC w Diff NO MAN DIFF REQ, RBC 4.20, MCV 103.2 H, MCH 34.0 H, MCHC 33.0, RDW 14.5, MPV 8.1, Gran % 72.1, Lymphocytes % 19.6 L, Monocytes % 6.9, Eosinophils % 0.8, Basophils % 0.6, Absolute Granulocytes 5.7, Absolute Lymphocytes 1.6, Absolute Monocytes 0.5, Absolute Eosinophils 0.1, Absolute Basophils 0, ESR W[place]gren 50 H 03/02/18 1605: Anion Gap 19 H, Estimated GFR 45 L, BUN/Creatinine Ratio 22.5, Glucose 163 H, Lactic Acid 1.9, Uric Acid 11.4 H, Calcium 10.1, Total Bilirubin 0.8, AST 30, ALT 21, Alkaline Phosphatase 110, Troponin I < 0.01, C-Reactive Prot, Quant 2.6 H, Total Protein 7.4, Albumin 4.7, Globulin 2.7, Albumin/Globulin Ratio 1.7 Microbiology 03/02 1605 BLOOD: Blood Culture - RECD 03/02 1536 BLOOD: Blood Culture - ORD Diagnostic Imaging: Viewed by Me: Radiology Read. Discussed w/RAD: Radiology Read. Radiology Impression: PATIENT: JONATHAN YOUSIF PRESENT AGE: 67 PATIENT ACCOUNT NO: [id number] : 52 LOCATION: [facility] ORDERING PHYSICIAN: Julius Thomas MD SERVICE DATE: 03/02/18 EXAM TYPE: RAD - XRY-TOES, RIGHT EXAMINATION: XR TOES, RIGHT CLINICAL INFORMATION: Pain and swelling. Evaluate for fracture. COMPARISON: None TECHNIQUE: 3 views of the right toes were obtained. FINDINGS: Diffuse, nonspecific soft tissue swelling of the visualized lower leg, ankle and foot. No soft tissue gas or radiopaque foreign body. Bones have normal alignment. No evidence of acute fracture, subluxation, osseous erosion or periostitis. Small osteophytes are observed at the mildly degenerated first tarsometatarsal joint and first metatarsophalangeal joint. IMPRESSION: 1. No acute osseous injury within the right foot. 2. Diffuse, nonspecific soft tissue swelling of the visualized leg, ankle and foot. 3. 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 DICTATED BY: Jordan Elam MD DATE/TIME DICTATED:03/02/182026 DINKEY DRIVER:AJITH DATE/TIME TRANSCRIBED:03/02/182026 CONFIDENTIAL, DO NOT COPY WITHOUT APPROPRIATE AUTHORIZATION. <Electronically signed in Other Vendor System> SIGNED BY: Jordan Elam MD 03/02/182033 Departure Departure Disposition: HOME OR SELF CARE Condition: Stable Clinical Impression Primary Impression: Cellulitis Secondary Impressions: Gout Referrals: Juilus Palacios MD (PCP/Family) Additional Instructions: It is hard to tell if this is skin infection or if it is gout. At this point it is best if we treat for both. Take the colchicine twice a day for 10 days, take the antibiotic as prescribed. Have her Coumadin level checked on Friday. Return if symptoms worsen or for any concerns. Departure Forms: Customer Survey General Discharge Information Prescriptions: Current Visit Scripts Amoxicillin 1 CAP PO TID #30 CAP Colchicine 1 TAB PO BID #20 TAB Oxycodone HCl/Acetaminophen (Percocet 5-325 MG Tablet) 1-2 TAB PO Q6P PRN PAIN #16 TAB
--- NOTE | 2018-03-02 20:34 | RADIOLOGY REPORT ---
EXAMINATION: XR TOES, RIGHT CLINICAL INFORMATION: Pain and swelling. Evaluate for fracture. COMPARISON: None TECHNIQUE: 3 views of the right toes were obtained. FINDINGS: Diffuse, nonspecific soft tissue swelling of the visualized lower leg, ankle and foot. No soft tissue gas or radiopaque foreign body. Bones have normal alignment. No evidence of acute fracture, subluxation, osseous erosion or periostitis. Small osteophytes are observed at the mildly degenerated first tarsometatarsal joint and first metatarsophalangeal joint. IMPRESSION: 1. No acute osseous injury within the right foot. 2. Diffuse, nonspecific soft tissue swelling of the visualized leg, ankle and foot. 3. 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
[2018-03-02] MEDS ORDERED: PERCOCET 5-3251 EACH PO (21:12)
[2018-03-02] MEDS ORDERED: AMOXICILLIN250 M3 PO (21:12)
[2018-03-02] MEDS ORDERED: COLCHICINE0.6 M2 PO (21:12)
== END 2018-03-02 22:00 ==
LOC: ERH 15:30 → ENTRNSPT 21:42 → EDTRNSPTSTS 21:48 → EDTRNSPT 21:48 → ERH 22:00 → CMPTRNSPT 22:03
PROVIDERS: Physician Assistant Medical
DX: L03.115 Cellulitis of right lower limb (principal); M10.9 Gout, unspecified; Z79.01 Long term (current) use of anticoagulants
CPT/HCPCS: 73660-RT; 87040

== ENCOUNTER 2018-03-20 21:22 | Inpatient (IN) | payer OTHER, MEDICARE ==
[~2018-03-20] VITALS: Ht 160 cm; Wt 127.5 kg
[~2018-03-20 21:22] MED LIST changes: +AMOXICILLIN250 M3 PO; +COLCHICINE0.6 M2 PO
--- NOTE | 2018-03-20 21:27 | ED GI/GU/ABDOMINAL COMPLAINT ---
History of Present Illness General Chief Complaint: Abdominal Pain/Flank Pain Stated Complaint: DARK STOOLS Source: patient, EMS Exam Limitations: no limitations Vital Signs & Intake/Output Vital Signs & Intake/Output Vital Signs Date Time Temp Pulse Resp B/P B/P Pulse O2 O2 Flow FiO2 Mean Ox Delivery Rate 03/20 2209 96 Room Air 03/20 2208 76 129/74 03/20 2137 97.2 76 18 133/69 96 Room Air Allergies Coded Allergies: aspirin (NAUSEA 05/26/16) colchicine (SEVERE DIARRHEA 03/20/18) shellfish derived (RED FACED 05/26/16) Reconcile Medications Albuterol Sulfate (Proair Hfa) 90 MCG HFA.AER.AD 2 PUF INH Q4-6 PRN PRN BREATHING PROBLEMS (Reported) Cholecalciferol (Vitamin D3) 1,000 UNIT TABLET 1 TAB PO DAILY SUPPLEMENT ( Reported) Cyclobenzaprine HCl 10 MG TABLET 1 TAB PO BID MUSCLE SPASMS (Reported) Diltiazem HCl (Cardizem Cd) 180 MG CAP.ER.24H 1 CAP PO DAILY HEART (Reported) Furosemide 40 MG TABLET 1 TAB PO DAILY DIURETIC (Reported) Gabapentin 300 MG CAPSULE 1 CAP PO TID NERVE PAIN (Reported) Hyoscyamine (Levsin) 0.125 MG TABLET 1 TAB PO TID PRN ABD CRAMPS (Reported) Insulin Detemir (Levemir Flextouch) 100 UNIT/1 ML INSULN.PEN 30 UNITS SC QAM DIABETES (Reported) Latanoprost 2.5 ML DROPS 1 GTT OPH QPM BOTH EYES (Reported) Lisinopril 10 MG TABLET 1 TAB PO DAILY BP (Reported) Magnesium Oxide (Magnesium) 400 MG CAPSULE 1 CAP PO DAILY hypomagnesemia Meloxicam 7.5 MG TABLET 1 TAB PO DAILY PAIN (Reported) Metoprolol Tartrate 100 MG TABLET 1 TAB PO BID HEART/BP (Reported) Mometasone Furoate (Nasonex) 17 GM SPRAY.PUMP 2 SPRAY NASB DAILY ALLERGIES ( Reported) Multivit-Min/Folic Acid/Biotin (Women Multivit W-Biotin Gummy) 200 MCG-300 MCG TAB.CHEW 1 TAB PO DAILY SUPPLEMENT (Reported) [place]-3 Fatty Acids/Fish Oil (Fish Oil 1,200 MG Softgel) 360 MG-1,200 MG CAPSULE 1 CAP PO BID SUPPLEMENT (Reported) Pantoprazole Sodium 40 MG TABLET.DR 1 TAB PO DAILY GI (Reported) Potassium Chloride 10 MEQ TABLET.ER 1 TAB PO DAILY SUPPLEMENT (Reported) Rosuvastatin Calcium (Crestor) 10 MG TABLET 1 TAB PO DAILY CHOLESTEROL ( Reported) Tramadol HCl (Tramadol HCl ER) 200 MG TAB.ER.24H 1 TAB PO QAM PAIN (Reported) Tramadol HCl 50 MG TABLET 1 TAB PO BIDP PRN PAIN Vitamin E Mixed (Vitamin E) 400 UNIT TABLET 1 TAB PO DAILY SUPPLEMENT ( Reported) Warfarin Sodium 2 MG TABLET 1 TAB PO MoWeFr BLOOD THINNER (Reported) Warfarin Sodium (Coumadin) 1 MG TABLET 1 TAB PO SuTuThSa BLOOD THINNER ( Reported) Triage Nurses Notes Reviewed? yes ? N Is pt currently ? No Onset: Gradual Duration: day(s):, waxing and waning Timing: recent history Radiation: no radiation Modifying Factors: Worsens With: other (DARK STOOL). Associated Symptoms: WEAKNESS HPI: 67 yo woman, h/o afib, on coumadin, presents with weakness and dark stool for the past 2-3 days. She notes, "I noticed the dark stool.. and I've been feeling a bit weak.... otherwise I'm okay." No chest pain, shortness of breath, abdominal pain, chest pain. Past History Medical History Any Pertinent Medical History? 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 MOTHER (pancreatic ca). Hx Contributory? No Review of Systems Review of Systems Constitutional: Reports: no symptoms. EENTM: Reports: no symptoms. Respiratory: Reports: no symptoms. Cardiovascular: Reports: no symptoms. GI: Reports: no symptoms. Genitourinary: Reports: no symptoms. Musculoskeletal: Reports: no symptoms. Skin: Reports: no symptoms. Neurological/Psychological: Reports: no symptoms. Hematologic/Endocrine: Reports: no symptoms. Immunologic/Allergic: Reports: no symptoms. All Other Systems: Reviewed and Negative Physical Exam Physical Exam General Appearance: well developed/nourished, no apparent distress Head: atraumatic, normal appearance Eyes: Bilateral: normal appearance. Ears, Nose, Throat, Mouth: hearing grossly normal, moist mucous membrane Gastrointestinal: normal bowel sounds, soft, non-tender, no organomegaly Comments: Review of Systems - except as otherwise noted in HPI Review of Systems Constitutional:no symptoms. EENTM:no symptoms. Respiratory:no symptoms. Cardiovascular:no symptoms. GI:no symptoms. Genitourinary:no symptoms. Musculoskeletal:no symptoms. Skin:no symptoms. Neurological/Psychological:no symptoms. Hematologic/Endocrine:no symptoms. Immunologic/Allergic:no symptoms. All Other Systems: Reviewed and Negative Physical Exam Physical Exam General Appearance: well developed/nourished, no apparent distress Head: atraumatic, normal appearance Eyes: Bilateral: normal appearance. Ears, Nose, Throat: normal pharynx, normal ENT inspection Neck: normal inspection, supple, full range of motion Respiratory: normal breath sounds, chest non-tender, no respiratory distress, quiet respiration, lungs clear Cardiovascular: regular rate/rhythm Gastrointestinal: normal bowel sounds, soft, non-tender, no organomegaly Back: normal inspection, normal range of motion Extremities: normal inspection, normal capillary refill, normal range of motion, no edema Neurologic/Psych: no motor/sensory deficits, awake, alert, oriented x 3 Skin: intact, normal color, warm/dry Rectal exam: dark stook, guiac + Core Measures ACS in differential dx? No Sepsis Present: No Sepsis Focused Exam Completed? No Progress Differential Diagnosis: lower gi bleed vs other. Plan of Care: Orders Procedure Date/time Status Nothing by Mouth 03/21 B Active Saline Lock 03/20 2248 Active Misc Message 03/20 2248 Active ED Holding Orders 03/20 2248 Active Admit to inpatient 03/20 2248 Active Vital Signs 03/20 2248 Active Code Status 03/20 2248 Active MISTAKE 03/20 2153 Active PARTIAL THROMBOPLASTIN TIME 03/20 2127 Complete PROTHROMBIN TIME 03/20 2127 Complete COMPREHENSIVE METABOLIC PANEL 03/20 2127 Complete CBC WITHOUT DIFFERENTIAL 03/20 2127 Complete EKG 03/20 2127 Active TYPE & SCREEN (NOT X-MATCH) 03/20 2127 Complete Current Medications Sig/Estella Start time Last Medication Dose Stop Time Status Admin Pantoprazole Sodium 40 MG Q5H 03/20 2300 UNVr (Protonix) Sodium Chloride 100 ML (Normal Saline 0.9%) Sodium Chloride 1,000 ML BOLUS ONE 03/20 2245 AC (Normal Saline 0.9%) 03/20 2344 Laboratory Tests 03/20/182153: Anion Gap 20 H, Estimated GFR 24 L, BUN/Creatinine Ratio 19.0, Glucose 140 H, Calcium 9.3, Total Bilirubin 0.8, AST 33, ALT 23, Alkaline Phosphatase 91, Total Protein 6.3, Albumin 3.8, Globulin 2.5, Albumin/Globulin Ratio 1.5, PT 60.4 *H, INR 5.45 *H, APTT 57 H, CBC w Diff NO MAN DIFF REQ, RBC 3.35 L, MCV 101.6 H, MCH 34.7 H, MCHC 34.2, RDW 15.7 H, MPV 8.3, Gran % 52.0, Lymphocytes % 32.0, Monocytes % 8.7, Eosinophils % 6.5 H, Basophils % 0.8, Absolute Granulocytes 2.6, Absolute Lymphocytes 1.6, Absolute Monocytes 0.4, Absolute Eosinophils 0.3, Absolute Basophils 0 Diagnostic Imaging: Viewed by Me: Radiology Read. Discussed w/RAD: Radiology Read. CXR Impression: PATIENT: JONATHAN YOUSIF PRESENT AGE: 67 PATIENT ACCOUNT NO: [id number] : 52 LOCATION: [facility] ORDERING PHYSICIAN: Will Fuentes MD SERVICE DATE: 03/20/18 EXAM TYPE: RAD - XRY- PORTABLE CHEST XRAY EXAMINATION: XR PORTABLE CHEST CLINICAL INFORMATION: Atrial fibrillation. Dyspnea COMPARISON: 11/13/16 TECHNIQUE: Portable frontal view of the chest was obtained. FINDINGS: Extreme upper chest excluded. There may be some tortuosity of the aorta. The cardiac size is unchanged. The left hilum is obscured. No change in the right hilum. Some increased density in the right base medially is unchanged. The lower lung zones are difficult to assess due to habitus and technique. No acute consolidation. No pneumothorax. IMPRESSION: Limited assessment of the lower lungs. No definite acute pneumonia or edema. DICTATED BY: Johnson Luque MD DATE/TIME DICTATED:03/20/182227 ARM REST BUILDER:AJITH DATE/TIME TRANSCRIBED:03/20/182227 CONFIDENTIAL, DO NOT COPY WITHOUT APPROPRIATE AUTHORIZATION. <Electronically signed in Other Vendor System> SIGNED BY: Johnson Luque MD 03/20/182233 Initial ED EKG: afib, no acute changes. Departure Departure Disposition: STILL A PATIENT Condition: Stable Clinical Impression Primary Impression: GI bleed Secondary Impressions: Elevated serum creatinine Referrals: Julius Palacios MD (PCP/Family) Departure Forms: Customer Survey General Discharge Information Comments 03/20/18, 23:01...discussed with dr. sharma (GI), pt to be placed on protonix gtt, likely endoscopy in the AM. Admission Note Spoke With: Son MERCEDES,[facility] Documentation of Exam: Documentation of any treatments & extenuating circumstances including Concerns Regarding Discharge (functional status, medication knowledge or non-compliance, living conditions, etc.) that warrant an admission rather than observation: pt with lower gi bleed on coumadin for afib, hct stable, pt orthostatic, barely, with stable BP... pt to be placed in ICU for likely endoscopy in the AM. Critical Care Note Critical Care Note Critical Care Time: 30-74 min
[2018-03-20] MEDS ORDERED: TRAMADOL HCL E200 MG PO (22:09)
[2018-03-20 22:10] LABS: ABSOLUTE BASOPHIL COUNT 0 /CUMM (0.0-0.2); ABSOLUTE EOSINOPHIL COUNT 0.3 /CUMM (0.0-0.7); ABSOLUTE GRANULOCYTE CT 2.6 /CUMM (1.4-6.5); ABSOLUTE LYMPH COUNT 1.6 /CUMM (1.2-3.4); ABSOLUTE MONOCYTE COUNT 0.4 /CUMM (0.10-0.60); BASOPHIL % 0.8 % (0.0-2.0); EOSINOPHIL % 6.5 % (0-5); HEMATOCRIT 34.1 % (37-47); MEAN CORPUSCULAR HGB 34.7 PG (27.0-31.0); MEAN CORPUSCULAR HGB CONC 34.2 G/DL (33.0-37.0); MEAN CORPUSCULAR VOLUME 101.6 FL (81.0-99.0); MEAN PLATELET VOLUME 8.3 FL (7.4-10.4); PLATELET COUNT 129 /CUMM (130-400); RBC DISTRIBUTION WIDTH 15.7 % (11.5-14.5); RED BLOOD CELL CT 3.35 /CUMM (4.20-5.40); WHITE BLOOD CELL COUNT 5.1 /CUMM (4.8-10.8)
[2018-03-20 22:15] LABS: PTT 57 SEC (25-37)
[2018-03-20 22:33] LABS: PT 60.4 SEC (9.4-12.5)
--- NOTE | 2018-03-20 22:34 | RADIOLOGY REPORT ---
EXAMINATION: XR PORTABLE CHEST CLINICAL INFORMATION: Atrial fibrillation. Dyspnea COMPARISON: 11/13/16 TECHNIQUE: Portable frontal view of the chest was obtained. FINDINGS: Extreme upper chest excluded. There may be some tortuosity of the aorta. The cardiac size is unchanged. The left hilum is obscured. No change in the right hilum. Some increased density in the right base medially is unchanged. The lower lung zones are difficult to assess due to habitus and technique. No acute consolidation. No pneumothorax. IMPRESSION: Limited assessment of the lower lungs. No definite acute pneumonia or edema.
--- NOTE | 2018-03-20 23:06 | History & Physical ---
Leonel MERCEDES,[facility] 03/20/18 4336: General Information and HPI MD Statement: I have seen and personally examined JONATHAN YOUSIF and documented this H&P. The patient is a 67 year old F who presented with a patient stated chief complaint of GI bleed. Source of Information: patient Exam Limitations: no limitations History of Present Illness: The patient is a 53-year-old female with a past medical history of atrial fibrillation on coumadin, hypertension, hyperlipidemia, COPD, diabetes, CHF (EF 55%, 2015), IBS diarrhea predominant, with a recent history of taking meloxicam and then Naproxen presents to [facility] after being sent by coumading clinic for evaluation of "bruises". She reports that she called her Coumadin clinic regarding her worsening skin bruises, and when she was asked whether she was having any blood in stool or black tarry stools, she reported she has had about 3 day history of dark stools. The Coumadin clinic thenn instructed her to go to [facility] for further evaluation. Patient is not exactly clear on the details of her bowel movement, was moderately anxious during the interview. She states that mostly her stools have been dark for the past three days, but also reported in some incidents, there was some "streaks of blood" on both the tissue paper and on stools. She denied any pain during bowel movements or any unusual or strong odor in her stools. Denies any constipation and actually reports chronic diarrhea from IBS, no abdominal pain,hematemesis, or increased heartburn (she is on a PPI at home). Patient has been seen by the GI service by Dr Corona for heart burn and abdominal pain, EGD done in 2012 was only remarkable for chronic duodenitis and chronic antral gastritis. The same year she also underwent a colonoscopy which was positive for 2 benign tubular adenoma and no invasive carcinoma. Allergies/Medications Allergies: Coded Allergies: aspirin (NAUSEA 05/26/16) colchicine (SEVERE DIARRHEA 03/20/18) shellfish derived (RED FACED 05/26/16) Home Med list Albuterol Sulfate (Proair Hfa) 90 MCG HFA.AER.AD 2 PUF INH Q4-6 PRN PRN BREATHING PROBLEMS (Reported) Cholecalciferol (Vitamin D3) 1,000 UNIT TABLET 1 TAB PO DAILY SUPPLEMENT ( Reported) Cyclobenzaprine HCl 10 MG TABLET 1 TAB PO BID MUSCLE SPASMS (Reported) Diltiazem HCl (Cardizem Cd) 180 MG CAP.ER.24H 1 CAP PO DAILY HEART (Reported) Furosemide 40 MG TABLET 1 TAB PO DAILY DIURETIC (Reported) Gabapentin 300 MG CAPSULE 1 CAP PO TID NERVE PAIN (Reported) Hyoscyamine (Levsin) 0.125 MG TABLET 1 TAB PO TID PRN ABD CRAMPS (Reported) Insulin Detemir (Levemir Flextouch) 100 UNIT/1 ML INSULN.PEN 30 UNITS SC QAM DIABETES (Reported) Latanoprost 2.5 ML DROPS 1 GTT OPH QPM BOTH EYES (Reported) Lisinopril 10 MG TABLET 1 TAB PO DAILY BP (Reported) Magnesium Oxide (Magnesium) 400 MG CAPSULE 1 CAP PO DAILY hypomagnesemia Meloxicam 7.5 MG TABLET 1 TAB PO DAILY PAIN (Reported) Metoprolol Tartrate 100 MG TABLET 1 TAB PO BID HEART/BP (Reported) Mometasone Furoate (Nasonex) 17 GM SPRAY.PUMP 2 SPRAY NASB DAILY ALLERGIES ( Reported) Multivit-Min/Folic Acid/Biotin (Women Multivit W-Biotin Gummy) 200 MCG-300 MCG TAB.CHEW 1 TAB PO DAILY SUPPLEMENT (Reported) [place]-3 Fatty Acids/Fish Oil (Fish Oil 1,200 MG Softgel) 360 MG-1,200 MG CAPSULE 1 CAP PO BID SUPPLEMENT (Reported) Pantoprazole Sodium 40 MG TABLET.DR 1 TAB PO DAILY GI (Reported) Potassium Chloride 10 MEQ TABLET.ER 1 TAB PO DAILY SUPPLEMENT (Reported) Rosuvastatin Calcium (Crestor) 10 MG TABLET 1 TAB PO DAILY CHOLESTEROL ( Reported) Tramadol HCl (Tramadol HCl ER) 200 MG TAB.ER.24H 1 TAB PO QAM PAIN (Reported) Tramadol HCl 50 MG TABLET 1 TAB PO BIDP PRN PAIN Vitamin E Mixed (Vitamin E) 400 UNIT TABLET 1 TAB PO DAILY SUPPLEMENT ( Reported) Warfarin Sodium 2 MG TABLET 1 TAB PO MoWeFr BLOOD THINNER (Reported) Warfarin Sodium (Coumadin) 1 MG TABLET 1 TAB PO SuTuThSa BLOOD THINNER ( Reported) Past History Travel History Traveled to [place] past 21 day No Medical History Neurological: peripheral neuropathy EENT: glaucoma, ABN AUDITORY PERCEPTION Cardiovascular: AFIB, CHF, hypertension, hyperlipidemia Respiratory: bronchitis, COPD Gastrointestinal: GERD, irritable bowel syndrome Hepatic: NONE Renal: NONE Musculoskeletal: chronic back pain, SHOULDER JOINT PAIN BILATERAL KNEE PAIN Psychiatric: NONE Endocrine: diabetes Blood Disorders: NONE Cancer(s): NONE 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 MOTHER (pancreatic ca). Psychosocial History Services at Home: None Review of Systems Review of Systems Constitutional: Reports: no symptoms. EENTM: Reports: no symptoms. Cardiovascular: Reports: edema. Respiratory: Reports: short of breath. GI: Reports: see HPI. Genitourinary: Reports: no symptoms. Musculoskeletal: Reports: joint swelling. Skin: Reports: see HPI. Neurological/Psychological: Reports: anxiety. Hematologic/Endocrine: Reports: bruising. Immunologic/Allergic: Reports: no symptoms. All Other Systems: Reviewed and Negative Exam & Diagnostic Data Last 24 Hrs of Vital Signs/I&O Vital Signs Date Time Temp Pulse Resp B/P B/P Pulse O2 O2 Flow FiO2 Mean Ox Delivery Rate 03/20 2209 96 Room Air 03/20 220 76 129/74 03/20 2137 97.2 76 18 133/69 96 Room Air Intake & Output 03/21 0800 03/21 0000 03/20 1600 Intake Total 0 Output Total Balance 0 Intake, IV 0 Patient 120.202 kg Weight Weight Estimated Measurement Method Physical Exam General Appearance Alert, Oriented X3, Cooperative, anxious Skin No Significant Lesion, multiple areas of echymosis on the abdominal area and lower back areas. Skin Temp/Moisture Exam: Warm/Dry Sepsis Skin Exam (color): Normal for Ethnicity HEENT Atraumatic, Mucous Membr. moist/pink Neck Supple, No JVD Lymphatic Cervical nl Cardiovascular Normal S1, Normal S2, No Murmurs Lungs Clear to Auscultation Abdomen Normal Bowel Sounds, Soft, No Tenderness Neurological Normal Speech, Normal Tone, Sensation Intact Extremities No Clubbing, No Cyanosis, No Edema, slight swelling of right great toe on the lateral side, no tenderness Vascular dorsalis pedis not appreaciated. Posistive Posterior tibialis Assessment/Plan Assessment: 67-year-old lady with a history of diarrhea predominant IBS, on coumadin for afib, with current use of NSAIDs presents for evaluation of dark stools in the setting of supratherapeutic INR. Hemodynamically stable, even though orthostats positive, hemoglobin and hematocrit also stable. No hematemesis or obvious BRBPR. Impression * GI bleed. History of dark stool in the context of NSAID use and a supratherapeutic INR is concerning for upper GI bleed from NSAID induced ulcer precipitated by the elevated INR. She has an elevated BUN (eventhough prerenal azotemia could also be the cause, this patient does not appear to be dehydrated, is euvolemic, and not intravasculary depleted). Therefore the elevated BUN gives further credence to a more likely upper GI Bleed. Her Glascow- Blatchford score is 6 which warrants admission and endoscopy. Another explanation of elevated BUN/creatinine ratio is prerenal azotemia from dehydration, however this patient appears to be in a euvolemic state and no signs of intravascular depletion. * Elevated INR of 5.5 which is above the optimal therapeutic range of 2-3. Unclear whether patient is compliant with her INR checkups. Her daughter does report that she drinks about 4-5 glasses of wine, school be of clinical significance as per to large amounts of intermittent alcohol consumption associated with elevated INR. * NICHOLE as evident by an increment of 0.9 in creatinine in less than a month. Possibly pre-renal? * Thrombocytopenia. Appears to be chronic. * Alcohol use. * History of chronic diseases: Atrial fibrillation, IBS, gout, hypertension, diabetes, COPD, CHF. Plan Admit to ICU Keep nothing by mouth 2 large IV bores CBCs every 6 hours x1, then every 8h Patient already typed and cross, will keep hemoglobin above 8 and transfuse if needed D5NS at 100ml/hr (Pt has CHF, no recent echo, last one in 2014 with 55% EF) Hold Coumadin Status post vitamin K 10 mg oral, will recheck INR tomorrow morning and consider FFP if above 1.8 Endoscopy tomorrow morning Accu-Chek every 6 Nothing by mouth Novolin scale Orthostats every shift Hold off BP meds and furosemide in the setting of GI bleed and orthostatic positive, when okay to resume will start with beta payal first [facility] consult tomorrow morning to assess risk and benefit of Coumadin reversal and temporary cessation CIWA with prn triggered dosing only DVT prophylaxis: Alps CODE STATUS: full code As Ranked By This Provider Problem List: 1. GI bleed 2. Elevated serum creatinine Core Measures/Misc (07/13) Acute Coronary Syndrome ACS Diagnosis: No Congestive Heart Failure Congestive Heart Failure Diagnosis No Cerebrovascular Accident CVA/TIA Diagnosis: No VTE (View Protocol) VTE Risk Factors Acute Medical Illness No Mechanical VTE Prophylaxis d/t N/A MechProphylax Ordered No VTE Pharm Prophylaxis d/t Medical Contraindication Sepsis (View protocol) Sepsis Present: No If YES complete Sepsis Event Note If YES complete Sepsis Event Note Son MERCEDES, [facility] 03/21/18 0212: Core Measures/Misc (07/13) Sepsis (View protocol) If YES complete Sepsis Event Note If YES complete Sepsis Event Note Attending MD Review Statement Attending Statement Attending MD Statement: examined this patient, discuss w/resident/PA/PROFESSOR OF ANTHROPOLOGY, agreed w/resident/PA/PROFESSOR OF ANTHROPOLOGY, reviewed images, amended to note Attending Assessment/Plan: 67 yo F with h/o Afib on coumadin, HTN, T2DM, COPD, CHF, CKD stage 3, diverticulosis, chronic diarrhea, who was sent in by her coumadin clinic nurse as patient had noticed multiple bruises over her abdomen and reports 3-day h/o dark stools with occasional blood in it. Patient had not checked her INR for a few weeks now. Patient was seen in the ER on March 02 for right foot 5th toe cellulitis/ gout which was treated with amoxicillin and colchicine. She developed profuse diarrhea probably due to amoxicillin but completed the course. Her PCP prescribed keflex which she did not take. For her pain, patient was taking meloxicam which was switched to naproxen 2 weeks back. Patient was scheduled to see Dr. Varela and get her INR checked 3 weeks ago but she missed her appointment as she came to the ER. Today, patient noted multiple bruises to her abdomen, in addition to the bruises on the flanks (which are from insulin shots). She has also noted dark stools for the last 3 days, no diarrhea or constipation. She has hemorrhoids and has noted intermittent bright red blood, but no clots. She denies heartburn or hematemesis. She reports lightheadedness, right sided chest discomfort, and progressively increasing exertional dyspnea. She denies palpitations, nausea, vomiting, abdominal pain. C/o worsening lower extremity edema despite being on lasix. Reports poor appetite, drinks gingerale or flavored water but rarely drinks water. EGD (2013): possible short segment Roach's esophagus, mild nonerosive gastritis. Pathology chronic duodenitis. Colonoscopy (2013): colon polyps tubular adenoma, ramesh-diverticulosis, internal and external hemorrhoids. Please note, daughter reported to resident that patient drinks 4-5 glasses of wine everyday, whereas patient told us that she drinks one glass of wine everyday. Vitals: afebrile, HR 60-70's, BP 115/72, sats 96% RA. Orthostats: Lying 129/74 --> Sitting 114/71 --> 108/67. Exam: AAO, anxious lady, stuttering speech, dry mouth, Chest b/l clear, Heart S1S2 irregular, Abd multiple ecchymotic patches noted. LE:b/l pedal edema+, peripheral pulses difficult to palpate. Right foot 5th toe is edematous but no warmth, erythema or tenderness. Rectal exam done in ER: dark stool, heme positive. Labs: H/H 11.6/34.1 (14.3/43.3 on March 02), macrocytic anemia, Plt 129, INR 5.45 , AG 20, BUN 40, creat 2.1 (baseline 0.9-1.2), glucose 140, LFTs normal. CXR: no consolidation or edema. Echo (2014): EF 55%, LVH, mild pulmonary hypertension. EKG: Afib, Qtc 461. Assessment and plan: 1. Melena 2. Upper GI bleed in the setting of NSAID use and elevated INR DD are PUD, gastritis/ esophagitis. 3. Chronic atrial fibrillation on coumadin 4. Supratherapeutic INR, warfarin induced coagulopathy 5. Acute blood loss anemia 6. Orthostatic hypotension 7. History of hemorrhoids 8. NICHOLE on chronic kidney disease stage 3 9. Thrombocytopenia ?etiology ?chronic 10. Alcohol use - Admit to ICU - Type and crossmatch, CBC Q8 hourly - Transfuse for Hb < 8.0 - Check troponin, iron studies, B12, TSH, folic acid - GI consult - IV protonix drip - NPO for possible EGD in AM - CRCU consult - Avoid NSAIDs - Hold coumadin - Gentle IV hydration - Recheck orthostats in AM - Trend renal functions, check urinalysis for proteinuria, urine lytes and urine tox screen - Vitamin K 10 mg PO given in ER - Recheck INR in AM, patient will need FFP's in AM to reverse INR to a goal of < 1.8 for GI to scope her - Consult Cardiology - Recheck EKG and troponin in AM - Resume metoprolol in AM and if BP is stable resume cardizem - Hold lasix and lisinopril - Check alcohol level - CIWA score, IV ativan per CIWA - Diabetes management check HbA1c, insulin NPO SS. DVT ppx Alps/ supratherapeutic INR. Full code. Resident spoke with daughter Michelle. TTS > 45 mins
[2018-03-21] VITALS (10 sets, daily range): BP systolic 110–138; BP diastolic 68–82
--- NOTE | 2018-03-21 02:13 | Admission Certification ---
Admission Certification Certification Statement - As attending physician, I certify that at the time of - admission, based on clinical presentation, severity of - symptoms, need for further diagnostic testing and - therapeutic interventions, and risk of adverse outcomes - without in-hospital treatment, in my clinical assessment, - this patient requires an acute hospital stay for a minimum - of two nights or longer. I have also considered psychsocial - factors such as support system, advanced age, financial - issues, cognitive issues, and failed out-patient treatments, - past re-admission history, safety of patient, and lack of - compliance as applicable. Specific rationale supporting this admission is: Melena, upper GI bleed, acute blood loss anemia, orthostatic hypotension and supratherapeutic INR on coumadin. NICHOLE on CKD.
[2018-03-21 04:35] LABS: ABSOLUTE BASOPHIL COUNT 0 /CUMM (0.0-0.2); ABSOLUTE EOSINOPHIL COUNT 0.4 /CUMM (0.0-0.7); ABSOLUTE GRANULOCYTE CT 1.9 /CUMM (1.4-6.5); ABSOLUTE LYMPH COUNT 1.9 /CUMM (1.2-3.4); ABSOLUTE MONOCYTE COUNT 0.5 /CUMM (0.10-0.60); BASOPHIL % 0.7 % (0.0-2.0); EOSINOPHIL % 8.3 % (0-5); GRANULOCYTE % 41.1 % (42.2-75.2); HEMATOCRIT 30.7 % (37-47); MEAN CORPUSCULAR HGB 34.8 PG (27.0-31.0); MEAN CORPUSCULAR HGB CONC 34.2 G/DL (33.0-37.0); MEAN CORPUSCULAR VOLUME 101.6 FL (81.0-99.0); MEAN PLATELET VOLUME 8.6 FL (7.4-10.4); PLATELET COUNT 106 /CUMM (130-400); RBC DISTRIBUTION WIDTH 15.6 % (11.5-14.5); RED BLOOD CELL CT 3.02 /CUMM (4.20-5.40); WHITE BLOOD CELL COUNT 4.7 /CUMM (4.8-10.8)
--- NOTE | 2018-03-21 08:47 | Cons- CRCU ---
Edin MERCEDES,[facility] 03/21/18 0846: General Information and HPI Consulting Request Date of Consult: 03/21/18 Requested By: Primary team History of Present Illness: 53-year-old female with a past medical history of atrial fibrillation on coumadin, hypertension, hyperlipidemia, COPD, diabetes, CHF (EF 55%, 2015), IBS diarrhea predominant, with a recent history of taking meloxicam and then Naproxen presents to [place] ED after being sent by coumading clinic for evaluation of "bruises". She reports that she called her Coumadin clinic regarding her worsening skin bruises, and when she was asked whether she was having any blood in stool or black tarry stools, she reported she has had about 3 day history of dark stools. The Coumadin clinic thenn instructed her to go to [place] ED for further evaluation. Patient is not exactly clear on the details of her bowel movement, was moderately anxious during the interview. She states that mostly her stools have been dark for the past three days, but also reported in some incidents, there was some "streaks of blood" on both the tissue paper and on stools. She denied any pain during bowel movements or any unusual or strong odor in her stools. Denies any constipation and actually reports chronic diarrhea from IBS, no abdominal pain,hematemesis, or increased heartburn (she is on a PPI at home). Patient has been seen by the GI service by Dr Corona for heart burn and abdominal pain, EGD done in 2012 was only remarkable for chronic duodenitis and chronic antral gastritis. The same year she also underwent a colonoscopy which was positive for 2 benign tubular adenoma and no invasive carcinoma. Allergies/Medications Allergies: Coded Allergies: aspirin (NAUSEA 05/26/16) colchicine (SEVERE DIARRHEA 03/20/18) shellfish derived (RED FACED 05/26/16) Home Med List: Albuterol Sulfate (Proair Hfa) 90 MCG HFA.AER.AD 2 PUF INH Q4-6 PRN PRN BREATHING PROBLEMS (Reported) Cholecalciferol (Vitamin D3) 1,000 UNIT TABLET 1 TAB PO DAILY SUPPLEMENT ( Reported) Cyclobenzaprine HCl 10 MG TABLET 1 TAB PO BID MUSCLE SPASMS (Reported) Diltiazem HCl (Cardizem Cd) 180 MG CAP.ER.24H 1 CAP PO DAILY HEART (Reported) Furosemide 40 MG TABLET 1 TAB PO DAILY DIURETIC (Reported) Gabapentin 300 MG CAPSULE 1 CAP PO TID NERVE PAIN (Reported) Hyoscyamine (Levsin) 0.125 MG TABLET 1 TAB PO TID PRN ABD CRAMPS (Reported) Insulin Detemir (Levemir Flextouch) 100 UNIT/1 ML INSULN.PEN 30 UNITS SC QAM DIABETES (Reported) Latanoprost 2.5 ML DROPS 1 GTT OPH QPM BOTH EYES (Reported) Lisinopril 10 MG TABLET 1 TAB PO DAILY BP (Reported) Magnesium Oxide (Magnesium) 400 MG CAPSULE 1 CAP PO DAILY hypomagnesemia Meloxicam 7.5 MG TABLET 1 TAB PO DAILY PAIN (Reported) Metoprolol Tartrate 100 MG TABLET 1 TAB PO BID HEART/BP (Reported) Mometasone Furoate (Nasonex) 17 GM SPRAY.PUMP 2 SPRAY [place]B DAILY ALLERGIES ( Reported) Multivit-Min/Folic Acid/Biotin (Women Multivit W-Biotin Gummy) 200 MCG-300 MCG TAB.CHEW 1 TAB PO DAILY SUPPLEMENT (Reported) [place]-3 Fatty Acids/Fish Oil (Fish Oil 1,200 MG Softgel) 360 MG-1,200 MG CAPSULE 1 CAP PO BID SUPPLEMENT (Reported) Pantoprazole Sodium 40 MG TABLET.DR 1 TAB PO DAILY GI (Reported) Potassium Chloride 10 MEQ TABLET.ER 1 TAB PO DAILY SUPPLEMENT (Reported) Rosuvastatin Calcium (Crestor) 10 MG TABLET 1 TAB PO DAILY CHOLESTEROL ( Reported) Tramadol HCl (Tramadol HCl ER) 200 MG TAB.ER.24H 1 TAB PO QAM PAIN (Reported) Tramadol HCl 50 MG TABLET 1 TAB PO BIDP PRN PAIN Vitamin E Mixed (Vitamin E) 400 UNIT TABLET 1 TAB PO DAILY SUPPLEMENT ( Reported) Warfarin Sodium 2 MG TABLET 1 TAB PO MoWeFr BLOOD THINNER (Reported) Warfarin Sodium (Coumadin) 1 MG TABLET 1 TAB PO SuTuThSa BLOOD THINNER ( Reported) Review of Systems Review of Systems Constitutional: Reports: see HPI. Past History Travel History Traveled to [place] past 21 day No Medical History Blood Transfusion Hx: No Neurological: peripheral neuropathy EENT: glaucoma, ABN AUDITORY PERCEPTION Cardiovascular: AFIB, CHF, hypertension, hyperlipidemia Respiratory: bronchitis, COPD Gastrointestinal: GERD, irritable bowel syndrome Hepatic: NONE Renal: NONE Musculoskeletal: chronic back pain, SHOULDER JOINT PAIN BILATERAL KNEE PAIN Psychiatric: NONE Endocrine: diabetes Blood Disorders: NONE Cancer(s): NONE ENGRAVER COPPERPLATE/Reproductive: NONE Surgical History Surgical History: non-contributory Family History Relations & Conditions If Any: FATHER (tb, CHF). MOTHER (pancreatic ca). Psychosocial History Where Do You Live? Home Services at Home: None Smoking Status: Never Smoked Exam & Diagnostic Data Last 24 Hrs of Vital Signs/I&O Vital Signs Date Time Temp Pulse Resp B/P B/P Pulse O2 O2 Flow FiO2 Mean Ox Delivery Rate 03/21 1400 78 26 116/72 03/21 1200 97.9 72 24 110/74 03/21 1108 Room Air Room Air 03/21 0800 92 Room Air 03/21 0800 98.2 69 18 110/70 92 Room Air 03/21 0600 97.5 71 20 110/68 03/21 0400 97.5 66 16 110/68 03/21 0400 95 Room Air 03/21 0138 96 Room Air 03/21 0130 97.9 62 13 115/72 03/21 0130 97.9 62 18 132/74 96 Room Air 03/20 2209 96 Room Air 03/20 2208 76 129/74 03/20 2137 97.2 76 18 133/69 96 Room Air Intake & Output 03/21 1600 03/21 0800 03/21 0000 Intake Total 1030 595.6 0 Output Total 400 500 Balance 630 95.6 0 Intake, Blood 340 Product Intake, IV 690 595.6 0 Intake, Oral 0 0 Number 0 0 Bowel Movements Output, Urine 400 500 Patient 288 lb 265 lb Weight Weight Bed scale Estimated Measurement Method Physical Exam General Appearance: alert, awake, patient crying and distressed due to family issues, obese Respiratory: normal breath sounds Cardiovascular: irregular irregular HR Gastrointestinal: normal bowel sounds Extremities: LE edema. 1+ pitting, 2+ radial pulses Last 48 Hrs of Labs/Radhames: Laboratory Tests 03/21/18 1545: PT Pending, INR Pending, APTT Pending 03/21/18 1236: CBC w Diff NO MAN DIFF REQ, RBC 3.04 L, MCV 102.5 H, MCH 34.6 H, MCHC 33.8, RDW 15.8 H, MPV 8.4, Gran % 45.6, Lymphocytes % 35.8, Monocytes % 9.3, Eosinophils % 8.5 H, Basophils % 0.8, Absolute Granulocytes 1.6, Absolute Lymphocytes 1.2, Absolute Monocytes 0.3, Absolute Eosinophils 0.3, Absolute Basophils 0 03/21/18 0622: Urine Opiates Screen 138, Methadone Screen 71, Barbiturate Screen < 60, Ur Phencyclidine Scrn 7.50, Amphetamines Screen < 100, U Benzodiazepines Scrn < 85, Urine Cocaine Screen < 50, Urine Cannabis Screen < 5.00, Urine Color YEL, Urine Clarity CLEAR, Urine pH 6.0, Ur Specific [place] 1.015, Urine Protein NEG, Urine Ketones NEG, Urine Nitrite NEG, Urine Bilirubin NEG, Urine Urobilinogen 0.2, Ur Leukocyte Esterase SMALL H, Ur Microscopic SEDIMENT EXAMINED, Urine WBC 3-5 H, Ur Epithelial Cells FEW, Urine Bacteria FEW H, Hyaline Casts FEW H, Urine Hemoglobin NEG, Urine Glucose NEG 03/21/18 0600: PT Cancelled, INR Cancelled 03/21/18 0352: Anion Gap 12, Estimated GFR 25 L, Glucose 100 H, Calcium 9.0, Phosphorus 5.3 H, Magnesium 1.8, Total Bilirubin 0.6, AST 21, ALT 25, Troponin I < 0.01, Albumin 3.1 L, PT 63.0 *H, INR 5.68 *H, CBC w Diff NO MAN DIFF REQ, RBC 3.02 L , MCV 101.6 H, MCH 34.8 H, MCHC 34.2, RDW 15.6 H, MPV 8.6, Gran % 41.1 L, Lymphocytes % 40.2, Monocytes % 9.7 H, Eosinophils % 8.3 H, Basophils % 0.7, Absolute Granulocytes 1.9, Absolute Lymphocytes 1.9, Absolute Monocytes 0.5, Absolute Eosinophils 0.4, Absolute Basophils 0 03/20/184: Anion Gap 20 H, Estimated GFR 24 L, BUN/Creatinine Ratio 19.0, Glucose 140 H, Calcium 9.3, Magnesium 1.7, Iron 132, TIBC 337, Ferritin 189.0, Total Bilirubin 0.8, AST 33, ALT 23, Alkaline Phosphatase 91, Troponin I < 0.01, Total Protein 6.3, Albumin 3.8, Globulin 2.5, Albumin/Globulin Ratio 1.5, Vitamin B12 476, Folate > 20.0 H, TSH 9.550 H, Free T4 0.92, PT 60.4 *H, INR 5.45 *H, APTT 57 H, CBC w Diff NO MAN DIFF REQ, RBC 3.35 L, MCV 101.6 H, MCH 34.7 H, MCHC 34.2 , RDW 15.7 H, MPV 8.3, Gran % 52.0, Lymphocytes % 32.0, Monocytes % 8.7, Eosinophils % 6.5 H, Basophils % 0.8, Absolute Granulocytes 2.6, Absolute Lymphocytes 1.6, Absolute Monocytes 0.4, Absolute Eosinophils 0.3, Absolute Basophils 0, Serum Alcohol 18.0 03/20/18 1000: Sodium Cancelled, Potassium Cancelled, Chloride Cancelled, Carbon Dioxide Cancelled, Anion Gap Cancelled, BUN Cancelled, Creatinine Cancelled, Glucose Cancelled, Calcium Cancelled, Phosphorus Cancelled, Magnesium Cancelled, Total Bilirubin Cancelled, AST Cancelled, ALT Cancelled, Albumin Cancelled Assessment/Plan CRCU Impression/Plan: A: 67-year-old lady with a history of diarrhea predominant IBS, on coumadin for afib, with current use of NSAIDs presents for evaluation of bright red blood in the setting of supratherapeutic INR. P: #GI bleed in the setting of NSAID use and elevated INR History of dark stool in the context of NSAID use and a supratherapeutic INR is concerning for upper GI bleed from NSAID induced ulcer precipitated by the elevated INR. She has an elevated BUN. Elevated BUN gives further credence to a more likely upper GI Bleed. Received 2 units of fluids Intial H/H 11.6/34.1 Initial inr 5.45 Current H/H 10.5/31.2 Current INR 2.7 s/p 10 vit k and 1 unit ffp -will give 2 more unit ffp. f/u coags @ 7pm -full liquid diet -plan for EGD tomorrow -cont IV protonix -cont off fluids -Keep Hgb between 7 and 8 #etoh abuse Her daughter does report that she drinks about 4-5 glasses of wine/day.Clinical significance as per to large amounts of intermittent alcohol consumption associated with elevated INR. -cont ciwa protocol and ativan iv prn #NICHOLE Baseline Cr 1.0, Admission Cr 2.1 Has received 2L+ of fluids thus far -cont to monitor -consider restarting fluids after EGD #Thrombocytopenia. Appears to be chronic. -cont to monitor #History of chronic diseases: Atrial fibrillation, IBS, gout, hypertension, diabetes, COPD, CHF. -cardiology consult regarding holding anticoagulation -holding HTN meds setting of GI bleed -cont home meds after EGD and stable -cont cardizem FULL LIQUID DIET DVT prophylaxis: Alps CODE STATUS: full code Problem List: 1. GI bleed 2. NICHOLE (acute kidney injury) Consult Acknowledgment - Thank you for your consult request. Luis F MERCEDES,[facility] 03/21/18 1022: Assessment/Plan CRCU Other Findings/Comments: Seen and examined independently 67 yo F with h/o Afib on coumadin, HTN, T2DM, COPD, CHF, CKD stage 3, diverticulosis, chronic diarrhea, who was sent in by her coumadin clinic nurse as patient had noticed multiple bruises over her abdomen and reports 3-day h/o dark stools with occasional blood in it. Patient had not checked her INR for a few weeks now. Pt has had previoius barretts, and gastritis Has had history of ETOH daily Has been using NSAID daily Previous polyps and hemorrhoids Exam: AAO, anxious lady, stuttering speech, dry mouth, Chest b/l clear, Heart S1S2 irregular, Abd multiple ecchymotic patches noted. LE:b/l pedal edema+, peripheral pulses difficult to palpate. Right foot 5th toe is edematous but no warmth, erythemaI or tenderness. Rectal exam done in ER: dark stool, heme positive. ISSUES * MElena with ugi bleed in a lady with suprtherapeutic INR on coumadin, ETOH use , NSAID use with prior PUD, Barretts * PAFIB * INitial hypotension now resolved * NICHOLE with ckd * ETOH abuse watch for DT * Thrombocytopenia with chronic etoh abuse will work up REC * Keep hgb more than 7-8 * cont all meds * R/o OR * Back off fluids * IV PPI * GI to see * FFP * VIt k has already been given Watch for DT tts 34 Consult Acknowledgment - Thank you for your consult request.
[2018-03-21 14:21] LABS: ABSOLUTE BASOPHIL COUNT 0 /CUMM (0.0-0.2); ABSOLUTE EOSINOPHIL COUNT 0.3 /CUMM (0.0-0.7); ABSOLUTE GRANULOCYTE CT 1.6 /CUMM (1.4-6.5); ABSOLUTE LYMPH COUNT 1.2 /CUMM (1.2-3.4); ABSOLUTE MONOCYTE COUNT 0.3 /CUMM (0.10-0.60); BASOPHIL % 0.8 % (0.0-2.0); EOSINOPHIL % 8.5 % (0-5); GRANULOCYTE % 45.6 % (42.2-75.2); HEMATOCRIT 31.2 % (37-47); MEAN CORPUSCULAR HGB 34.6 PG (27.0-31.0); MEAN CORPUSCULAR HGB CONC 33.8 G/DL (33.0-37.0); MEAN CORPUSCULAR VOLUME 102.5 FL (81.0-99.0); MEAN PLATELET VOLUME 8.4 FL (7.4-10.4); PLATELET COUNT 94 /CUMM (130-400); RBC DISTRIBUTION WIDTH 15.8 % (11.5-14.5); RED BLOOD CELL CT 3.04 /CUMM (4.20-5.40); WHITE BLOOD CELL COUNT 3.5 /CUMM (4.8-10.8)
[2018-03-21 16:21] LABS: PT 29.7 SEC (9.4-12.5); PTT 46 SEC (25-37)
--- NOTE | 2018-03-21 16:39 | Cons- Gastroenterology ---
General Information and HPI Consulting Request Date of Consult: 03/21/18 Requested By: Son MERCEDES,Gaby Reason for Consult: 1. Acute blood loss anemia 2. Melena 3. Long-term use of anticoagulants 4. Coagulopathy Source of Information: patient, electronic medical record Exam Limitations: no limitations History of Present Illness: Ms. Winchester is a 67-year-old female with a past medical history of atrial fibrillation for which she takes Coumadin. She had noticed increased bruising across her abdomen and called the coumadin clinic and was told to come to the ED. Upon arrival in the ED she was found to have an elevated PT/INR of 63.0/ 5.6. She had no acute drop in her H&H which was 11.6/34.1, however, the next morning it had dropped to 10.5/31.2. Of note her MCV is 101.6. Ms. Winchester had recently been taking both Meloxicam and Naproxen. She also reported dark, but not clearly melenic stools. She denied nausea, vomiting, hematemesis, abdominal pain. She had had no fever or shaking chills. She denies syncope, presyncope, palpitations or shortness of breath. She last had an EGD and colonoscopy by Dr. Corona in 2012 which showed mild gastritis and several small adenomatous polyps. Gastric biopsies were negative for H. Pylori. Additional past medical history of significance includes hypertension, hyperlipidemia, COPD, diabetes, CHF (EF 55%, 2014), diarrhea-predominant IBS. Allergies/Medications Allergies: Coded Allergies: aspirin (NAUSEA 05/26/16) colchicine (SEVERE DIARRHEA 03/20/18) shellfish derived (RED FACED 05/26/16) Home Med List: Albuterol Sulfate (Proair Hfa) 90 MCG HFA.AER.AD 2 PUF INH Q4-6 PRN PRN BREATHING PROBLEMS (Reported) Cholecalciferol (Vitamin D3) 1,000 UNIT TABLET 1 TAB PO DAILY SUPPLEMENT ( Reported) Cyclobenzaprine HCl 10 MG TABLET 1 TAB PO BID MUSCLE SPASMS (Reported) Diltiazem HCl (Cardizem Cd) 180 MG CAP.ER.24H 1 CAP PO DAILY HEART (Reported) Furosemide 40 MG TABLET 1 TAB PO DAILY DIURETIC (Reported) Gabapentin 300 MG CAPSULE 1 CAP PO TID NERVE PAIN (Reported) Hyoscyamine (Levsin) 0.125 MG TABLET 1 TAB PO TID PRN ABD CRAMPS (Reported) Insulin Detemir (Levemir Flextouch) 100 UNIT/1 ML INSULN.PEN 30 UNITS SC QAM DIABETES (Reported) Latanoprost 2.5 ML DROPS 1 GTT OPH QPM BOTH EYES (Reported) Lisinopril 10 MG TABLET 1 TAB PO DAILY BP (Reported) Magnesium Oxide (Magnesium) 400 MG CAPSULE 1 CAP PO DAILY hypomagnesemia Meloxicam 7.5 MG TABLET 1 TAB PO DAILY PAIN (Reported) Metoprolol Tartrate 100 MG TABLET 1 TAB PO BID HEART/BP (Reported) Mometasone Furoate (Nasonex) 17 GM SPRAY.PUMP 2 SPRAY [place] DAILY ALLERGIES ( Reported) Multivit-Min/Folic Acid/Biotin (Women Multivit W-Biotin Gummy) 200 MCG-300 MCG TAB.CHEW 1 TAB PO DAILY SUPPLEMENT (Reported) [place]-3 Fatty Acids/Fish Oil (Fish Oil 1,200 MG Softgel) 360 MG-1,200 MG CAPSULE 1 CAP PO BID SUPPLEMENT (Reported) Pantoprazole Sodium 40 MG TABLET.DR 1 TAB PO DAILY GI (Reported) Potassium Chloride 10 MEQ TABLET.ER 1 TAB PO DAILY SUPPLEMENT (Reported) Rosuvastatin Calcium (Crestor) 10 MG TABLET 1 TAB PO DAILY CHOLESTEROL ( Reported) Tramadol HCl (Tramadol HCl ER) 200 MG TAB.ER.24H 1 TAB PO QAM PAIN (Reported) Tramadol HCl 50 MG TABLET 1 TAB PO BIDP PRN PAIN Vitamin E Mixed (Vitamin E) 400 UNIT TABLET 1 TAB PO DAILY SUPPLEMENT ( Reported) Warfarin Sodium 2 MG TABLET 1 TAB PO MoWeFr BLOOD THINNER (Reported) Warfarin Sodium (Coumadin) 1 MG TABLET 1 TAB PO SuTuThSa BLOOD THINNER ( Reported) Current Medications: Current Medications Sig/Estella Start time Last Medication Dose Route Stop Time Status Admin Acetaminophen 500 MG ONCE ONE 03/21 1245 DC 03/21 IV 03/21 1246 1257 Albuterol Sulfate 2 PUF Q4P PRN 03/21 1115 AC INH Dextrose/Sodium 1,000 ML Q13H 03/20 2345 DC 03/21 Chloride IV 03/21 0944 0129 Diltiazem HCl 180 MG DAILY 03/21 1600 AC PO Gabapentin 300 MG TID 03/21 0900 AC 03/21 PO 1539 Insulin Human Regular 0 Q6 03/20 2359 AC 03/21 SC 1201 Lorazepam 0 Q1P PRN 03/21 0230 AC IV Lorazepam 0.5 MG ONCE ONE 03/21 0145 DC 03/21 PO 03/21 0146 0155 Lorazepam 2 MG Q2P PRN 03/21 0045 DC IV Lorazepam 1 MG Q2P PRN 03/21 0045 DC IV Magnesium Oxide 400 MG ONCE ONE 03/21 0900 DC 03/21 PO 03/21 0901 0905 Pantoprazole Sodium 40 MG .STK-MED ONE 03/21 0254 DC IV 03/21 0255 Pantoprazole Sodium 0 .STK-MED ONE 03/20 2339 DC IV Pantoprazole Sodium 0 .STK-MED ONE 03/20 2338 DC IV Pantoprazole Sodium 80 MG ONCE ONE 03/20 2300 DC 03/20 IV 03/20 2301 233 Pantoprazole Sodium 40 MG Q5H 03/20 2300 AC 03/21 Sodium Chloride 100 ML IV 1515 Phytonadione 10 MG ONCE ONE 03/20 2245 DC 03/20 PO 03/20 2246 2340 Sodium Chloride 1,000 ML BOLUS ONE 03/20 2245 DC 03/21 IV 03/20 2344 0007 Tramadol HCl 50 MG BID PRN 03/21 2100 AC PO Past History Travel History Traveled to [place] past 21 day No Medical History Blood Transfusion Hx: No Neurological: peripheral neuropathy EENT: glaucoma, ABN AUDITORY PERCEPTION Cardiovascular: AFIB, CHF, hypertension, hyperlipidemia Respiratory: bronchitis, COPD Gastrointestinal: GERD, irritable bowel syndrome Hepatic: NONE Renal: NONE Musculoskeletal: chronic back pain, SHOULDER JOINT PAIN BILATERAL KNEE PAIN Psychiatric: NONE Endocrine: diabetes Blood Disorders: NONE Cancer(s): NONE 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 MOTHER (pancreatic ca). Psychosocial History Where Do You Live? Home Services at Home: None Smoking Status: Never Smoked Review of Systems Review of Systems Constitutional: Reports: weakness. Denies: unexplained weight loss. EENTM: Reports: no symptoms. Cardiovascular: Reports: no symptoms. Respiratory: Reports: no symptoms. GI: Reports: see HPI. Genitourinary: Reports: no symptoms. Musculoskeletal: Reports: no symptoms. Skin: Reports: see HPI. Neurological/Psychological: Reports: no symptoms. Hematologic/Endocrine: Reports: bruising. Exam & Diagnostic Data Vital Signs and I&O Vital Signs Date Time Temp Pulse Resp B/P B/P Pulse O2 O2 Flow FiO2 Mean Ox Delivery Rate 03/21 1400 78 26 116/72 03/21 1200 97.9 72 24 110/74 03/21 1108 Room Air Room Air 03/21 0800 92 Room Air 03/21 0800 98.2 69 18 110/70 92 Room Air 03/21 0600 97.5 71 20 110/68 03/21 0400 97.5 66 16 110/68 03/21 0400 95 Room Air 03/21 0138 96 Room Air 03/21 0130 97.9 62 13 115/72 03/21 0130 97.9 62 18 132/74 96 Room Air 03/20 2209 96 Room Air 03/20 2208 76 129/74 03/20 2137 97.2 76 18 133/69 96 Room Air Intake & Output 03/21 1600 03/21 0400 03/20 1600 03/20 0400 03/19 1600 03/19 0400 Intake Total 1625.6 0 Output Total 900 Balance 725.6 0 Intake, Blood 340 Product Intake, IV 1285.6 0 Intake, Oral 0 Number 0 Bowel Movements Output, Urine 900 Patient 288 lb Weight Weight Bed scale Measurement Method Physical Exam General Appearance: alert, awake, comfortable Head: atraumatic, normal appearance Eyes: Bilateral: normal appearance. Ears, Nose, Throat: hearing grossly normal Neck: supple, full range of motion Respiratory: normal breath sounds, lungs clear Cardiovascular: regular rate/rhythm, Normal S1 and S2 without rub, murmur or gallop Gastrointestinal: normal bowel sounds, soft, non-tender, no organomegaly Extremities: normal inspection Neurologic/Psych: no motor/sensory deficits, alert, oriented x 3 Cranial Nerves: Cranial Nerves II-XII grossly intact Skin: ecchymosis, eccymoses located across anterior abdomen Results Pertinent Lab Results: Laboratory Tests 03/21 03/21 1545 1236 Coagulation PT (9.4 - 12.5 SEC) 29.7 H INR (0.90 - 1.19) 2.70 H APTT (25 - 37 SEC) 46 H Hematology CBC w Diff NO MAN DIFF REQ WBC (4.8 - 10.8 /CUMM) 3.5 L RBC (4.20 - 5.40 /CUMM) 3.04 L Hgb (12.0 - 16.0 G/DL) 10.5 L Hct (37 - 47 %) 31.2 L MCV (81.0 - 99.0 FL) 102.5 H MCH (27.0 - 31.0 PG) 34.6 H MCHC (33.0 - 37.0 G/DL) 33.8 RDW (11.5 - 14.5 %) 15.8 H Plt Count (130 - 400 /CUMM) 94 L MPV (7.4 - 10.4 FL) 8.4 Gran % (42.2 - 75.2 %) 45.6 Lymphocytes % (20.5 - 51.1 %) 35.8 Monocytes % (1.7 - 9.3 %) 9.3 Eosinophils % (0 - 5 %) 8.5 H Basophils % (0.0 - 2.0 %) 0.8 Absolute Granulocytes (1.4 - 6.5 /CUMM) 1.6 Absolute Lymphocytes (1.2 - 3.4 /CUMM) 1.2 Absolute Monocytes (0.10 - 0.60 /CUMM) 0.3 Absolute Eosinophils (0.0 - 0.7 /CUMM) 0.3 Absolute Basophils (0.0 - 0.2 /CUMM) 0 03/21 03/21 0622 0600 Coagulation PT Cancelled INR Cancelled Toxicology Urine Opiates Screen (>2000 NG/ML) 138 Methadone Screen (>300 NG/ML) 71 Barbiturate Screen (>200 NG/ML) < 60 Ur Phencyclidine Scrn (>25 NG/ML) 7.50 Amphetamines Screen (>1000 NG/ML) < 100 U Benzodiazepines Scrn (>200 NG/ML) < 85 Urine Cocaine Screen (>300 NG/ML) < 50 Urine Cannabis Screen (>50 NG/ML) < 5.00 Urines Urine Color (YEL,AMB,STR) YEL Urine Clarity (CLEAR) CLEAR Urine pH (5.0 - 8.0) 6.0 Ur Specific [place] (1.001 - 1.035) 1.015 Urine Protein (NEG,<30 MG/DL) NEG Urine Ketones (NEG) NEG Urine Nitrite (NEG) NEG Urine Bilirubin (NEG) NEG Urine Urobilinogen (0.1 - 1.0 EU/dl) 0.2 Ur Leukocyte Esterase (NEG) SMALL H Ur Microscopic SEDIMENT EXAMINED Urine WBC (0 - 2 /HPF) 3-5 H Ur Epithelial Cells (NONE,FEW) FEW Urine Bacteria (NEG/NONE) FEW H Hyaline Casts (0/LPF) FEW H Urine Hemoglobin (NEG) NEG Urine Glucose (N MG/DL) NEG 03/21 03/20 0352 2154 Chemistry Sodium (137 - 145 mmol/L) 140 142 Potassium (3.5 - 5.1 mmol/L) 4.2 4.5 Chloride (98 - 107 mmol/L) 103 99 Carbon Dioxide (22 - 30 mmol/L) 26 23 Anion Gap (5 - 16) 12 20 H BUN (7 - 17 mg/dL) 39 H 40 H Creatinine (0.5 - 1.0 mg/dL) 2.0 H 2.1 H Estimated GFR (>60 ml/min) 25 L 24 L BUN/Creatinine Ratio (7 - 25 %) 19.0 Glucose (65 - 99 mg/dL) 100 H 140 H Calcium (8.4 - 10.2 mg/dL) 9.0 9.3 Phosphorus (2.5 - 4.5 mg/dL) 5.3 H Magnesium (1.6 - 2.3 mg/dL) 1.8 1.7 Iron (37 - 170 ug/dL) 132 TIBC (265 - 497 ug/dL) 337 Ferritin (11.1 - 264 ng/mL) 189.0 Total Bilirubin (0.2 - 1.3 mg/dL) 0.6 0.8 AST (14 - 36 U/L) 21 33 ALT (9 - 52 U/L) 25 23 Alkaline Phosphatase (<127 U/L) 91 Troponin I (< 0.11 ng/ml) < 0.01 < 0.01 Total Protein (6.3 - 8.2 g/dL) 6.3 Albumin (3.5 - 5.0 g/dL) 3.1 L 3.8 Globulin (1.9 - 4.2 gm/dL) 2.5 Albumin/Globulin Ratio (1.1 - 2.2 %) 1.5 Vitamin B12 (239 - 931 pg/mL) 476 Folate (2.76 - 20.0 ng/mL) > 20.0 H TSH (0.270 - 4.200 uIU/mL) 9.550 H Free T4 (0.78 - 2.44 ng/dL) 0.92 Coagulation PT (9.4 - 12.5 SEC) 63.0 *H 60.4 *H INR (0.90 - 1.19) 5.68 *H 5.45 *H APTT (25 - 37 SEC) 57 H Hematology CBC w Diff NO MAN DIFF REQ NO MAN DIFF REQ WBC (4.8 - 10.8 /CUMM) 4.7 L 5.1 RBC (4.20 - 5.40 /CUMM) 3.02 L 3.35 L Hgb (12.0 - 16.0 G/DL) 10.5 L 11.6 L Hct (37 - 47 %) 30.7 L 34.1 L MCV (81.0 - 99.0 FL) 101.6 H 101.6 H MCH (27.0 - 31.0 PG) 34.8 H 34.7 H MCHC (33.0 - 37.0 G/DL) 34.2 34.2 RDW (11.5 - 14.5 %) 15.6 H 15.7 H Plt Count (130 - 400 /CUMM) 106 L 129 L MPV (7.4 - 10.4 FL) 8.6 8.3 Gran % (42.2 - 75.2 %) 41.1 L 52.0 Lymphocytes % (20.5 - 51.1 %) 40.2 32.0 Monocytes % (1.7 - 9.3 %) 9.7 H 8.7 Eosinophils % (0 - 5 %) 8.3 H 6.5 H Basophils % (0.0 - 2.0 %) 0.7 0.8 Absolute Granulocytes (1.4 - 6.5 /CUMM) 1.9 2.6 Absolute Lymphocytes (1.2 - 3.4 /CUMM) 1.9 1.6 Absolute Monocytes (0.10 - 0.60 /CUMM) 0.5 0.4 Absolute Eosinophils (0.0 - 0.7 /CUMM) 0.4 0.3 Absolute Basophils (0.0 - 0.2 /CUMM) 0 0 Toxicology Serum Alcohol (<10 MG/DL) 18.0 05/25 UNK Chemistry Sodium Cancelled Potassium Cancelled Chloride Cancelled Carbon Dioxide Cancelled Anion Gap Cancelled BUN Cancelled Creatinine Cancelled Glucose Cancelled Calcium Cancelled Phosphorus Cancelled Magnesium Cancelled Total Bilirubin Cancelled AST Cancelled ALT Cancelled Albumin Cancelled Assessment/Plan Assessment/Recommendations: ASSESSMENT: 1. Coagulopathy -- correct vigorously with FFP 2. Acute drop in H&H 3. Chronic use of anticoagulants 4. Use of NSAIDs 5. Melena 6. Acute Kidney Injury RECOMMENDATIONS: 1. Correct coagulopathy 2. Nothing by mouth after midnight 3. Serial H&H. Keep Hgb between 7 and 8 4. Risks and benefits of EGD were discussed with patient. 5. If EGD is negative will consider inpatient colonoscopy. However if source of bleeding is identified on EGD patient will still need colonoscopy given personal history of polyps. Colonoscopy can be done in the outpatient setting in this case. 6. Increase rate of IV Fluids and monitor BUN/Cr. Also Monitor Strict I/Os and give lasix as needed. Consult Acknowledgment - Thank you for your consult request.
[2018-03-21 19:50] LABS: PT 22.9 SEC (9.4-12.5)
[2018-03-22] VITALS (9 sets, daily range): BP systolic 100–161; BP diastolic 42–98
[2018-03-22 03:12] LABS: ABSOLUTE BASOPHIL COUNT 0 /CUMM (0.0-0.2); ABSOLUTE EOSINOPHIL COUNT 0.3 /CUMM (0.0-0.7); ABSOLUTE LYMPH COUNT 1.1 /CUMM (1.2-3.4); ABSOLUTE MONOCYTE COUNT 0.4 /CUMM (0.10-0.60); BASOPHIL % 0.3 % (0.0-2.0); HEMATOCRIT 30.4 % (37-47); MEAN CORPUSCULAR HGB 34.4 PG (27.0-31.0); MEAN CORPUSCULAR HGB CONC 33.4 G/DL (33.0-37.0); MEAN CORPUSCULAR VOLUME 103.1 FL (81.0-99.0); MEAN PLATELET VOLUME 8.2 FL (7.4-10.4); PLATELET COUNT 84 /CUMM (130-400); RBC DISTRIBUTION WIDTH 15.7 % (11.5-14.5); RED BLOOD CELL CT 2.95 /CUMM (4.20-5.40); WHITE BLOOD CELL COUNT 3.7 /CUMM (4.8-10.8)
[2018-03-22 03:21] LABS: PT 18.6 SEC (9.4-12.5); PTT 35 SEC (25-37)
--- NOTE | 2018-03-22 08:55 | PN- CRCU ---
Subjective HPI/Critical Care Issues: #1 GI Bleed in setting on BSAID s/p EGD today found to have erosions. #2 ETOH abuse #3 NICHOLE #4 thrombocytopenia Objective Current Medications: Current Medications Sig/Estella Start time Last Medication Dose Route Stop Time Status Admin Acetaminophen 1,000 MG ONCE ONE 03/22 1045 DC 03/22 N/A 1 UNIT IV 03/22 1059 1049 Albuterol Sulfate 2 PUF Q4P PRN 03/21 1115 AC INH Atorvastatin Calcium 10 MG DAILY 03/23 0900 AC PO Cholecalciferol 1,000 IU DAILY 03/22 1859 AC PO Diltiazem HCl 180 MG DAILY 03/21 1600 AC 03/22 PO 0840 Furosemide 40 MG DAILY 03/23 0900 AC PO Gabapentin 300 MG TID 03/21 0900 AC 03/22 PO 1632 Insulin Aspart 0 TIDAC 03/23 0800 AC 03/22 SC 1835 Insulin Human Regular 0 Q6 03/20 2359 DC 03/21 SC 1805 Lisinopril 10 MG DAILY 03/23 0900 AC PO Lorazepam 0 Q1P PRN 03/21 0230 AC 03/22 IV 0727 Magnesium Oxide 400 MG DAILY 03/23 0900 AC PO Metoprolol Tartrate 100 MG BID 03/22 2100 AC PO Pantoprazole Sodium 40 MG BID 03/22 2100 AC IV Pantoprazole Sodium 40 MG Q5H 03/20 2300 DC 03/22 Sodium Chloride 100 ML IV 1049 Potassium Chloride 10 MEQ DAILY 03/23 0900 AC PO Tramadol HCl 50 MG BID PRN 03/21 2100 AC 03/22 PO 1631 Vital Signs & I&O Last 24 Hrs of Vitals and I&O: Vital Signs Date Time Temp Pulse Resp B/P B/P Pulse O2 O2 Flow FiO2 Mean Ox Delivery Rate 03/22 1600 95 Room Air 03/22 1600 98.0 68 20 100/42 95 Room Air 03/22 1200 Room Air 03/22 1200 80 21 128/69 03/22 1000 90 19 138/73 03/22 0800 Room Air 03/22 0800 97.3 90 22 132/80 03/22 0800 97.3 90 22 132/80 93 Room Air 03/22 0623 98.0 92 15 161/85 03/22 0400 98.0 81 19 131/98 03/22 0400 95 Room Air 03/22 0000 97.3 77 18 138/78 03/22 0000 95 Room Air 03/21 2336 97.3 77 19 138/78 95 Room Air 03/21 2000 97.9 84 14 118/74 03/21 2000 94 Room Air Intake & Output 03/22 1600 03/22 0800 03/22 0000 Intake Total 276 143.2 1460.9 Output Total 241 208 0852 Balance -424 -756.8 60.9 Intake, Blood 330 Product Intake, IV 176 143.2 170.9 Intake, Oral 100 0 960 Number 0 0 Bowel Movements Output, Urine 058 911 2334 Patient 127.459 kg Weight Weight Bed scale Measurement Method Exam General Appearance: well developed/nourished, no apparent distress, alert, awake Head: atraumatic, normal appearance Neck: normal inspection, supple Respiratory: normal breath sounds, chest non-tender, no respiratory distress Cardiovascular: regular rate/rhythm Abdomen: normal bowel sounds, soft, non-tender Back: normal inspection, normal range of motion Results Last 24 Hrs of Lab Results: Laboratory Tests 03/22/18 0300: Anion Gap 10, Estimated GFR 45 L, Glucose 86, Calcium 9.1, Phosphorus 4.4, Magnesium 1.6, Total Bilirubin 0.7, AST 24, ALT 33, Albumin 3.3 L, PT 18.6 H, INR 1.70 H, APTT 35, CBC w Diff NO MAN DIFF REQ, RBC 2.95 L, MCV 103.1 H, MCH 34.4 H, MCHC 33.4, RDW 15.7 H, MPV 8.2, Gran % 54.0, Lymphocytes % 28.9, Monocytes % 9.8 H, Eosinophils % 7.0 H, Basophils % 0.3, Absolute Granulocytes 2.0, Absolute Lymphocytes 1.1 L, Absolute Monocytes 0.4, Absolute Eosinophils 0.3, Absolute Basophils 0 Diagnostic Data CXR Findings: SERVICE DATE: 03/20/18 EXAM TYPE: RAD - XRY-PORTABLE CHEST XRAY EXAMINATION: XR PORTABLE CHEST CLINICAL INFORMATION: Atrial fibrillation. Dyspnea COMPARISON: 11/13/16 TECHNIQUE: Portable frontal view of the chest was obtained. FINDINGS: Extreme upper chest excluded. There may be some tortuosity of the aorta. The cardiac size is unchanged. The left hilum is obscured. No change in the right hilum. Some increased density in the right base medially is unchanged. The lower lung zones are difficult to assess due to habitus and technique. No acute consolidation. No pneumothorax. IMPRESSION: Limited assessment of the lower lungs. No definite acute pneumonia or edema. Impression/Plan Impression/Plan Impression/Plan: This is 53-year-old female with a past medical history of atrial fibrillation on coumadin, hypertension, hyperlipidemia, COPD, diabetes, CHF (EF 55%, 2015), IBS diarrhea predominant, with a recent history of taking meloxicam and then Naproxen presents to [place] ED after being sent by coumadin clinic for evaluation of "bruises". She reports that she called her Coumadin clinic regarding her worsening skin bruises, and when she was asked whether she was having any blood in stool or black tarry stools, she reported she has had about 3 day history of dark stools. The Coumadin clinic then instructed her to go to [place] ED for further evaluation. Patient is not exactly clear on the details of her bowel movement, was moderately anxious during the interview. She states that mostly her stools have been dark for the past three days, but also reported in some incidents, there was some "streaks of blood" on both the tissue paper and on stools. #GI bleed in the setting of NSAID use and elevated INR * History of dark stool in the context of NSAID use * supratherapeutic INR is concerning for upper GI bleed from NSAID induced ulcer precipitated by the elevated INR. * Initial H/H 11.6/34.1 * H\\H today - 10.1/30.4 * Initial inr 5.45 * INR today 1.70 s/p vit k and FFP ( total 3 ) * s/p EGd with biopsy today 03/22/2018 with findings significant for diffuse gastric mucosal atrophy with erosion and 2 linear clean-based gastric ulcers * Will d/c protonix drip, change to po protonix * will advance diet * ct to monitor * check CBC tmrw * if stable, anticipated d/c tmrw * DG to Gen Med * Will need GI follow up for review of biopsy report. #etoh abuse * Her daughter does report that she drinks about 4-5 glasses of wine/day. * Clinical significance as per to large amounts of intermittent alcohol consumption associated with elevated INR. * cont ciwa protocol and ativan iv prn #NICHOLE * prerenal due to volume loss. * Baseline Cr 1.0, Admission Cr 2.1, todays creatinine - 1.2, improved with hydration, #Thrombocytopenia. * Appears to be chronic. * cont to monitor #History of chronic diseases: * Atrial fibrillation, IBS, gout, hypertension, diabetes, COPD, CHF. * We will continue to hold the anticoagulation for now. * Review again 03/23/2018 * Restarted all home medications. REGULAR DIET DVT prophylaxis: Alps CODE STATUS: full code Code Status: Full Code Problem List: 1. NICHOLE (acute kidney injury) 2. Diabetes mellitus 3. Elevated serum creatinine 4. GI bleed 5. Gout
--- NOTE | 2018-03-22 11:45 | PN- CRCU ---
Subjective HPI/Critical Care Issues: Appears relatively stable Has some headache in the left side Slightly anxious No further bowel movements Complained of some ear pain on the left side this was inspected and there was no discharge from the left side Significant data Creatinine is improved to 1.2 other blood work as noted white count 3.7 hemoglobin stable at 10.1 previous baseline hemoglobin was 12.6 platelets have reduced to 84 Her INR is now 1.7 She is MRSA positive by nasal swab Chest x-ray done yesterday showed no significant pneumonia Objective Current Medications: Current Medications Sig/Estella Start time Last Medication Dose Route Stop Time Status Admin Acetaminophen 1,000 MG ONCE ONE 03/22 1045 DC 03/22 N/A 1 UNIT IV 03/22 1059 1049 Acetaminophen 500 MG ONCE ONE 03/21 1245 DC 03/21 IV 03/21 1246 1257 Albuterol Sulfate 2 PUF Q4P PRN 03/21 1115 AC INH Diltiazem HCl 180 MG DAILY 03/21 1600 AC 03/22 PO 0840 Gabapentin 300 MG TID 03/21 0900 AC 03/22 PO 0840 Insulin Human Regular 0 Q6 03/20 2359 AC 03/21 SC 1805 Lorazepam 0 Q1P PRN 03/21 0230 AC 03/22 IV 0727 Pantoprazole Sodium 40 MG Q5H 03/20 2300 AC 03/22 Sodium Chloride 100 ML IV 1049 Tramadol HCl 50 MG BID PRN 03/21 2100 AC 03/22 PO 0608 Vital Signs & I&O Last 24 Hrs of Vitals and I&O: Vital Signs Date Time Temp Pulse Resp B/P B/P Pulse O2 O2 Flow FiO2 Mean Ox Delivery Rate 03/22 1000 90 19 138/73 03/22 0800 Room Air 03/22 0800 97.3 90 22 132/80 03/22 0800 97.3 90 22 132/80 93 Room Air 03/22 0623 98.0 92 15 161/85 03/22 0400 98.0 81 19 131/98 03/22 0400 95 Room Air 03/22 0000 97.3 77 18 138/78 03/22 0000 95 Room Air 03/21 2336 97.3 77 19 138/78 95 Room Air 03/21 2000 97.9 84 14 118/74 03/21 2000 94 Room Air 03/21 1800 77 20 131/82 03/21 1600 97.5 74 20 110/70 03/21 1600 97.5 74 20 110/70 96 Room Air 03/21 1400 78 26 116/72 03/21 1200 97.9 72 24 11074 Intake & Output 03/22 1600 03/22 0800 03/22 0000 Intake Total 143.2 1460.9 Output Total 900 1400 Balance -756.8 60.9 Intake, Blood 330 Product Intake, IV 143.2 170.9 Intake, Oral 0 960 Number 0 0 Bowel Movements Output, Urine 900 1400 Patient 281 lb Weight Weight Bed scale Measurement Method Impression/Plan Impression/Plan Impression/Plan: General Appearance: alert, awake, comfortable Head: atraumatic, normal appearance Eyes: Bilateral: normal appearance. Ears, Nose, Throat: hearing grossly normal Neck: supple, full range of motion Respiratory: normal breath sounds, lungs clear Cardiovascular: regular rate/rhythm, Normal S1 and S2 without rub, murmur or gallop Gastrointestinal: normal bowel sounds, soft, non-tender, no organomegaly Extremities: normal inspection Neurologic/Psych: no motor/sensory deficits, alert, oriented x 3 Cranial Nerves: Cranial Nerves II-XII grossly intact Skin: ecchymosis, eccymoses located across anterior abdomen IMPRESSION This is a lady with paroxysmal atrial fibrillation on warfarin, significant alcohol use, recent supratherapeutic INR, NSAID use in the recent past came in with multiple bruises in the abdominal wall and was found to have dark in positive stool. Her issues include Acute blood loss anemia with melena related to upper GI bleed. This may be related to coagulopathy and recent NSAID use compounded by alcohol. Patient seems to be better with no evidence of active bleeding. Coagulopathy due to anticoagulation use with warfarin Alcohol use Chronic kidney disease with acute renal insufficiency slowly improving Initial hypotension now resolved Thrombocytopenia with chronic alcohol use which needs to be worked up Paroxysmal atrial fibrillation Mild headache today which appears to be chronic Morbid obesity PLAN Continue her current medication Change her to IV Protonix twice a day Keep her hemoglobin around 7 Patient appears euvolemic. We'll continue maintenance fluids with D5 half- normal saline at 75 mL per hour Continue rate control medication Hold anticoagulation INR is 1.7 and if there is no further signs of bleeding we will hold off on using ffp We'll continue to watch her renal function tts 38 mins
--- NOTE | 2018-03-22 13:14 | Proc Note Endoscopy ---
Endoscopy Procedure Medical History: unchanged Mental Status: alert/oriented Heart/Lung Eval Prior to Sedation: within normal limits Candidate for Sedation? Yes Procedure Date: 03/22/18 Procedure Type: EGD w/biopsy [employer] Service Sales Representative: MD Gomez Deborah E. ASA Classification: III Indications: 1. Melena 2. Acute Blood Loss Anemia 3. Chronic Use NSAIDs Instrument: diagnostic gastroscope Meds Received: MAC Patient's Tolerance: good Complications: none Extent Reached: second part of duodenum Procedure: Note: Informed consent was obtained prior to procedure. Risks and benefits of procedure were discussed with patient. Potential complications discussed included perforation, bleeding, abdominal pain, and adverse reaction to medications. It was explained that iany or all of these complications could result in the need for extended hospitalization, emergency surgery, transfusion of packed red blood cells (with the risk of HIV or hepatitis virus), intubation with mechanical ventilation, and possible need for antibiotics. It was further explained that an existing tumor polyp or mucosal abnormality might not be identified at the time of the procedure thus resulting in a missed opportunity for early diagnosis and treatment of a gastrointestinal malignancy or disease with possible interval development of a gastrointestinal cancer or other disease with possible worsening of clinical condition in the interval between endoscopies. It was also discussed that complications are not limited to those listed above. Possible alternatives to endoscopic treatment or evaluation were discussed. All questions were answered. Continuous EKG and blood pressure monitors were attached. Supplemental oxygen was provided with O2 Sat monitoring. Patient was placed in the left lateral decubitus position. A surgical timeout was performed. All persons in the room were identified. All concerns were expressed and answered. A bite block was placed in the mouth and sedation was administered by anesthesia and titrated to comfort prior to starting the procedure. The Olympus upper endoscope was advanced under direct vision to the level of the third portion of the duodenum. Esophagus: The esophagus had a normal mucosal vascular pattern throughout its entirety. The GE junction was identified and was normal. The Z line was located at 40 cm from the incisors and was nondisplaced Stomach: The stomach had diffuse mucosal atrophy throughout its entirety. Retroflexed view of the cardiofundic region revealed a normal mucosal and vascular pattern. There were normal rugae and normal distensibility. The pylorus was patent and easily intubated. Within the antrum there were scattered erosions with no stigmata of bleeding. There were 2 linear ulcers above the pylorus with -[place] exudate and no stigmata of bleeding. Biopsies were obtained from the antrum, and gastric body to rule out H. Pylori. Duodenum: The duodenum was fully examined from bulb down to the third portion. There was a normal mucosal vascular pattern throughout. With the endoscope in the forward-viewing position, it was slowly withdrawn and all areas were re-inspected and findings are as described previously. Patient tolerated the procedure well. EBL: Minimal Specimens Removed: antrum, and gastric body to rule out H. Pylori. Findings: 1. Diffuse gastric mucosal atrophy with erosion 2. 2 linear clean-based gastric ulcers Impression: 1. Diffuse gastric mucosal atrophy with erosion 2. 2 linear clean-based gastric ulcers Recommendations: 1. Change Protonix to 40 mg by mouth every morning 2. Patient to be advised to avoid NSAIDs 3. Advance diet 4. Patient stable for discharge to home if diet tolerated 5. Patient follow-up with Dr. Gomez for biopsy review and further therapy is needed.
--- NOTE | 2018-03-22 16:35 | Patient Discharge Instructions ---
Discharge Instructions General Discharge Information You were seen/treated for: ACUTE GI BLOOD LOSS Special Instructions: Please follow up with your PCP in 1-2 weeks Please follow up with Dr. Rojas in 1 week. Please follow up with your supervisor of instruction in 1 week. Please avoid NSAIDs Please start your eliquis tonight. Diet Continue normal diet: Yes Acute Coronary Syndrome Inclusion Criteria At DC or during hospital stay patient has or had the following: ACS DIAGNOSIS No Discharge Core Measures Meds if any: Prescribed or Continued at Discharge Meds if any: NOT Prescribed or Continued at Discharge Congestive Heart Failure Inclusion Criteria At DC or during hospital stay patient has or had the following: CHF DIAGNOSIS No Discharge Core Measures Meds if any: Prescribed or Continued at Discharge Meds if any: NOT Prescribed or Continued at Discharge Cerebrovascular accident Inclusion Criteria At DC or during hospital stay patient has or had the following: CVA/TIA Diagnosis No Discharge Core Measures Meds if any: Prescribed or Continued at Discharge Meds if any: NOT Prescribed or Continued at Discharge Venous thromboembolism Inclusion Criteria VTE Diagnosis No VTE Type NONE VTE Confirmed by (Test) NONE Discharge Core Measures - Per Current guidelines, there needs to be overlap - treatment for the first 5 days of Warfarin therapy. - If discharged on Warfarin prior to 5 days of - overlap therapy, the patient will need to be - assessed for post discharge needs including - *Post discharge parental anticoagulation - *Warfarin and/or parental anticoagulation education - *Follow up date to check INR post discharge At least 5 days overlap therapy as Inpatient No Meds if any: Prescribed or Continued at Discharge Note: Overlap Therapy is Warfarin and Anticoagulant Meds if any: NOT Prescribed or Continued at Discharge
--- NOTE | 2018-03-22 19:23 | Cons- Cardiology ---
General Information and HPI Consulting Request Date of Consult: 03/22/18 Requested By: Son MERCEDES,Gaby History of Present Illness: Ms. Winchester is a 67 year old female with history of hypertension, dyslipidemia, diabetes and COPD. She also carries a history of chronic atrial fibrillation on chronic anticoagulation. Finally, this patient has known diverticular disease. This patient has been taking NSAIDs such as Meloxicam and Naproxen and has noted copious bruises that are not in the location that she injects her insulin. She has also noted dark stools with possible streaks of blood for about three days. She denies any abdominal discomfort and otherwise denies chest pain, pressure, tightness, lightehadedness or palpitations. She does have shortness of breath. Upon initial presentation this patient had renal insufficiency with a creatinine of 2.1 and INR of over 5. Allergies/Medications Allergies: Coded Allergies: aspirin (NAUSEA 05/26/16) colchicine (SEVERE DIARRHEA 03/20/18) shellfish derived (RED FACED 05/26/16) Home Med List: Albuterol Sulfate (Proair Hfa) 90 MCG HFA.AER.AD 2 PUF INH Q4-6 PRN PRN BREATHING PROBLEMS (Reported) Cholecalciferol (Vitamin D3) 1,000 UNIT TABLET 1 TAB PO DAILY SUPPLEMENT ( Reported) Cyclobenzaprine HCl 10 MG TABLET 1 TAB PO BID MUSCLE SPASMS (Reported) Diltiazem HCl (Cardizem Cd) 180 MG CAP.ER.24H 1 CAP PO DAILY HEART (Reported) Furosemide 40 MG TABLET 1 TAB PO DAILY DIURETIC (Reported) Gabapentin 300 MG CAPSULE 1 CAP PO TID NERVE PAIN (Reported) Hyoscyamine (Levsin) 0.125 MG TABLET 1 TAB PO TID PRN ABD CRAMPS (Reported) Insulin Detemir (Levemir Flextouch) 100 UNIT/1 ML INSULN.PEN 30 UNITS SC QAM DIABETES (Reported) Latanoprost 2.5 ML DROPS 1 GTT OPH QPM BOTH EYES (Reported) Lisinopril 10 MG TABLET 1 TAB PO DAILY BP (Reported) Magnesium Oxide (Magnesium) 400 MG CAPSULE 1 CAP PO DAILY hypomagnesemia Meloxicam 7.5 MG TABLET 1 TAB PO DAILY PAIN (Reported) Metoprolol Tartrate 100 MG TABLET 1 TAB PO BID HEART/BP (Reported) Mometasone Furoate (Nasonex) 17 GM SPRAY.PUMP 2 SPRAY [place]B DAILY ALLERGIES ( Reported) Multivit-Min/Folic Acid/Biotin (Women Multivit W-Biotin Gummy) 200 MCG-300 MCG TAB.CHEW 1 TAB PO DAILY SUPPLEMENT (Reported) Tobias-3 Fatty Acids/Fish Oil (Fish Oil 1,200 MG Softgel) 360 MG-1,200 MG CAPSULE 1 CAP PO BID SUPPLEMENT (Reported) Pantoprazole Sodium 40 MG TABLET.DR 1 TAB PO DAILY GI (Reported) Potassium Chloride 10 MEQ TABLET.ER 1 TAB PO DAILY SUPPLEMENT (Reported) Rosuvastatin Calcium (Crestor) 10 MG TABLET 1 TAB PO DAILY CHOLESTEROL ( Reported) Tramadol HCl (Tramadol HCl ER) 200 MG TAB.ER.24H 1 TAB PO QAM PAIN (Reported) Tramadol HCl 50 MG TABLET 1 TAB PO BIDP PRN PAIN Vitamin E Mixed (Vitamin E) 400 UNIT TABLET 1 TAB PO DAILY SUPPLEMENT ( Reported) Warfarin Sodium 2 MG TABLET 1 TAB PO MoWeFr BLOOD THINNER (Reported) Warfarin Sodium (Coumadin) 1 MG TABLET 1 TAB PO SuTuThSa BLOOD THINNER ( Reported) Review of Systems Review of Systems: A review of system is remarkable for foot discomfort. 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 MOTHER (pancreatic ca). Psychosocial History Where Do You Live? Home Services at Home: None Smoking Status: Never Smoked Exam & Diagnostic Data Vital Signs and I&O Vital Signs Date Time Temp Pulse Resp B/P B/P Pulse O2 O2 Flow FiO2 Mean Ox Delivery Rate 03/22 1600 95 Room Air 03/22 1600 98.0 68 20 100/42 95 Room Air 03/22 1200 Room Air 03/22 1200 80 21 128/69 03/22 1000 90 19 138/73 03/22 0800 Room Air 03/22 0800 97.3 90 22 132/80 03/22 0800 97.3 90 22 132/80 93 Room Air 03/22 0623 98.0 92 15 161/85 03/22 0400 98.0 81 19 131/98 03/22 0400 95 Room Air 03/22 0000 97.3 77 18 138/78 03/22 0000 95 Room Air 03/21 2336 97.3 77 19 138/78 95 Room Air Intake & Output 03/22 1600 03/22 0800 03/22 0000 03/21 1600 03/21 0800 03/21 0000 Intake Total 276 143.2 1460.9 1030 595.6 0 Output Total 504 899 2420 400 500 Balance -424 -756.8 60.9 630 95.6 0 Intake, Blood 330 340 Product Intake, IV 176 143.2 170.9 690 595.6 0 Intake, Oral 100 0 960 0 0 Number 0 0 0 0 Bowel Movements Output, Urine 061 200 0693 400 500 Patient 281 lb 288 lb 265 lb Weight Weight Bed scale Bed scale Estimated Measurement Method Physical Exam: General: WD/obses female in NAD; alert and oriented x 3 Skin: diffuse purpura HEENT: NC/AT, PERRL, EOMI Neck: no JVD, no carotid bruit Heart: irregularly irregular Lungs: clear bilaterally Abdomen: soft, NT, +ve bowel sounds Extremities: no edema Assessment/Plan Assessment/Plan * This patient has chronic atrial fibrillation and ideally should be on chronic anticoagulation for stroke prophylaxis. She, for the most part tolerates this but, recently, has had a supratherapeutic INR combined with NSAID use. As such, she has GI bleeding and diffuse purpura. The patient was taking NSAIDS for foot pain and possible gout. I would treat this with allopurinol and colchicine. * No active bleeding noted on endoscopy. Restart chronic anticoagulation with Eliquis 2.5mg BID if okay with GI. Would not employ coumadin since control was poor. No NSAIDS. * Good rate control on current medications. Consult Acknowledgment - Thank you for your consult request.
[2018-03-23] VITALS: BP 108/72
[2018-03-23 08:00] VITALS: BP 138/80
--- NOTE | 2018-03-23 08:53 | PN- Resident CRCU ---
Subjective HPI/CRCU Issues: EGD performed yesterday. Pt agreed to take Noac. Objective Vital Signs & I&O Last 8 Hrs of Vitals and I&O: Laboratory Tests 03/23/18 1134: Sodium Pending, Potassium Pending, Chloride Pending, Carbon Dioxide Pending, Anion Gap Pending, BUN Pending, Creatinine Pending, Glucose Pending, Calcium Pending, Phosphorus Pending, Magnesium Pending, Total Bilirubin Pending, AST Pending, ALT Pending, Albumin Pending, PT Pending, INR Pending, APTT Pending, CBC w Diff Pending, WBC Pending, RBC Pending, Hgb Pending, Hct Pending, MCV Pending, MCH Pending, MCHC Pending, RDW Pending, Plt Count Pending, MPV Pending Vital Signs Date Time Temp Pulse Resp B/P B/P Pulse O2 O2 Flow FiO2 Mean Ox Delivery Rate 03/23 1000 95 20 130/80 03/23 0919 97 138/80 03/23 0918 97 138/80 03/23 0800 97.3 97 20 138/80 03/23 0800 97.3 97 20 138/80 93 Room Air Exam General Appearance: alert, awake, anxious, obese Respiratory: normal breath sounds Cardiovascular: irregularly irregular Gastrointestinal: normal bowel sounds, soft, non-tender Extremities: 1+ radial pulses. 1+ LE edema Current Medications: Current Medications Sig/Estella Start time Last Medication Dose Route Stop Time Status Admin Albuterol Sulfate 2 PUF Q4P PRN 03/21 1115 AC 03/23 INH 0516 Atorvastatin Calcium 10 MG DAILY 03/23 0900 AC 03/23 PO 0918 Cholecalciferol 1,000 IU DAILY 03/22 1859 AC 03/23 PO 0917 Diltiazem HCl 180 MG DAILY 03/21 1600 AC 03/23 PO 0918 Furosemide 40 MG DAILY 03/23 0900 AC PO Gabapentin 300 MG TID 03/21 0900 AC 03/23 PO 0918 Insulin Aspart 0 TIDAC 03/23 0800 AC 03/23 SC 0836 Insulin Aspart 4 UNITS .STK-MED ONE 03/22 1833 DC MA 03/22 1834 Insulin Human Regular 0 Q6 03/20 2359 DC 03/21 SC 1805 Lisinopril 10 MG DAILY 03/23 0900 AC 03/23 PO 0918 Lorazepam 0 Q1P PRN 03/21 0230 AC 03/22 IV 0727 Magnesium Oxide 400 MG DAILY 03/23 09 AC 03/23 PO 0918 Magnesium Oxide 400 MG ONE ONE 03/23 09 CAN PO 03/23 09 Metoprolol Tartrate 100 MG BID 03/22 2100 AC 03/23 PO 09 Pantoprazole Sodium 40 MG BID 03/22 2100 AC 03/23 IV 0919 Pantoprazole Sodium 40 MG Q5H 03/20 2300 DC 03/22 Sodium Chloride 100 ML IV 1049 Potassium Chloride 10 MEQ DAILY 03/23 09 AC 03/23 PO 0918 Tramadol HCl 50 MG BID PRN 03/21 2100 AC 03/23 PO 0511 Impression/Plan Impression/Problem List Impression: A: 67-year-old lady with a history of diarrhea predominant IBS, on coumadin for afib, with current use of NSAIDs presents for evaluation of bright red blood in the setting of supratherapeutic INR. P: #GI bleed in the setting of NSAID use and elevated INR History of dark stool in the context of NSAID use and a supratherapeutic INR is concerning for upper GI bleed from NSAID induced ulcer precipitated by the elevated INR. She has an elevated BUN. Elevated BUN gives further credence to a more likely upper GI Bleed. Received 2 units of fluids EGD revaeled: Diffuse gastric mucosal atrophy with erosion and linear clean- based gastric ulcers Intial H/H 11.6/34.1 Initial inr 5.45. Received 10 vit k and 3 untsi ffp. -patient agreed to switch from warfarin to Eliquis -cont po protonix BID before dinner and breakfast -f/u with GI outpatient #etoh abuse Her daughter does report that she drinks about 4-5 glasses of wine/day.Clinical significance as per to large amounts of intermittent alcohol consumption associated with elevated INR. -cont ciwa protocol and ativan iv prn #NICHOLE Baseline Cr 1.0, Admission Cr 2.1 Has received 2L+ of fluids thus far Current Ct 1.1 -cont to monitor #Thrombocytopenia. Appears to be chronic.Prob splenic sequestration -needs follow up #afib -She agreed to switch from warfarin to Eliquis as noted above. She will be discharged with 2.5 mg twice a day per her preference. Given her recent GI bleed cardiology also recommended starting at 2.5mg BID and increasing to 5BID during her follow up cardiology visit. She was given a one-month trial box she was advised to follow-up with cardiology in one week. #History of chronic diseases:IBS, gout, hypertension, diabetes, COPD, CHF. -lisinopril, lasix, metoprolol, cardizem restarted as bp improved. -cont atorvastatin, tramadol, albuterol, gabapentin -cont novolog Heart healthy diet DVT prophylaxis: Alps CODE STATUS: full code Problem List: 1. GI bleed Pain Ratin Tomorrow's Labs & Rationales: none Plan DVT/Prophylaxis: mechanical Code Status: Full Code
[2018-03-23] MEDS ORDERED: ELIQUIS2.5 M1 PO ×2 (08:56→12:54)
[2018-03-23 10:00] VITALS: BP 130/80
--- NOTE | 2018-03-23 11:28 | PN- Pulmonary ---
Subjective HPI/Critical Care Issues: Seen and examined Stable Pt ready to go home No further head ache which she had yesterday No further Bleed noted Objective Vital Signs & I&O Last 24 Hrs of Vitals and I&O: Vital Signs Date Time Temp Pulse Resp B/P B/P Pulse O2 O2 Flow FiO2 Mean Ox Delivery Rate 03/23 1000 95 20 130/80 03/23 0919 97 138/80 03/23 0918 97 138/80 03/23 0800 97.3 97 20 138/80 03/23 0800 97.3 97 20 138/80 93 Room Air 03/23 0000 97.8 76 20 108/72 03/23 0000 96 Room Air Room Air 03/22 2300 97.2 72 20 108/74 96 Room Air Room Air 03/22 2116 76 20 108/72 03/22 2000 97.2 71 20 112/74 03/22 1600 95 Room Air 03/22 1600 98.0 68 20 100/42 95 Room Air 03/22 1200 Room Air 03/22 1200 80 21 128/69 Intake & Output 03/23 1600 03/23 0800 03/23 0000 Intake Total 120 120 Output Total 200 200 Balance -80 -80 Intake, Oral 120 120 Number 0 2 Bowel Movements Output, Urine 200 200 Impression/Plan Impression/Plan Impression/Plan: EGD Findings: 1. Diffuse gastric mucosal atrophy with erosion 2. 2 linear clean-based gastric ulcers Impression: 1. Diffuse gastric mucosal atrophy with erosion 2. 2 linear clean-based gastric ulcers Recommendations: 1. Change Protonix to 40 mg by mouth every morning 2. Patient to be advised to avoid NSAIDs 3. Advance diet 4. Patient stable for discharge to home if diet tolerated 5. Patient follow-up with Dr. Gomez for biopsy review and further therapy is needed. SIGNIFICANT DATA Creatinine stabilized to 1.2 yesterday No blood work today needs to be done Her INR is now 1.7 She is MRSA positive by nasal swab Chest x-ray done yesterday showed no significant pneumonia General Appearance: alert, awake, comfortable Head: atraumatic, normal appearance Eyes: Bilateral: normal appearance. Ears, Nose, Throat: hearing grossly normal Neck: supple, full range of motion Respiratory: normal breath sounds, lungs clear Cardiovascular: regular rate/rhythm, Normal S1 and S2 without rub, murmur or gallop Gastrointestinal: normal bowel sounds, soft, non-tender, no organomegaly Extremities: normal inspection Neurologic/Psych: no motor/sensory deficits, alert, oriented x 3 Cranial Nerves: Cranial Nerves II-XII grossly intact Skin: ecchymosis, eccymoses located across anterior abdomen IMPRESSION This is a lady with paroxysmal atrial fibrillation on warfarin, significant alcohol use, recent supratherapeutic INR, NSAID use in the recent past came in with multiple bruises in the abdominal wall and was found to have dark in positive stool. Her issues include * Resolved Acute blood loss anemia with melena related to upper GI bleed. This may be related to coagulopathy and recent NSAID use compounded by alcohol. Patient seems to be better with no evidence of active bleeding. EGD as above and stable * Coagulopathy due to anticoagulation use with warfarin * Low platelets due to prob splenic sequestration needs follow up * Sig Alcohol use, pt counselled * Chronic kidney disease with acute renal insufficiency slowly improving * Initial hypotension now resolved * Thrombocytopenia with chronic alcohol use which needs to be worked up if low as out pt * Paroxysmal atrial fibrillation, was on anticoag with coumadin and pt does not want NOAC as she wishes meds which require monitoring * RExolved Mild headache today which appears to be chronic * Morbid obesity PLAN Check blood work today and if stable pt absolutely wishes to be dcd today at all costs Continue her current medication PO ppi Needs out pt anticoag and pt absolutly wishes no NOACS and wishes to restart warfarin not at this time as she is afraid of bleeding- accepts all risks (check inr and start coumadin at her home dose at 50-60 percent if ok with cardio in the next day or two after dc, Pt promises to follow up with warfarin clinic, and cardio as out pt) PT says she will refrain from etoh and nsaid and she was educated extensively about this by me today OK to dc will follow closely if blood is ok
[2018-03-23 11:54] LABS: ABSOLUTE BASOPHIL COUNT 0 /CUMM (0.0-0.2); ABSOLUTE GRANULOCYTE CT 4.4 /CUMM (1.4-6.5)
[2018-03-23 11:56] LABS: ABSOLUTE EOSINOPHIL COUNT 0.2 /CUMM (0.0-0.7); ABSOLUTE MONOCYTE COUNT 0.5 /CUMM (0.10-0.60); BASOPHIL % 0.6 % (0.0-2.0); EOSINOPHIL % 3.9 % (0-5); GRANULOCYTE % 71.3 % (42.2-75.2); HEMATOCRIT 32.2 % (37-47); MEAN CORPUSCULAR HGB 34.8 PG (27.0-31.0); MEAN CORPUSCULAR HGB CONC 33.5 G/DL (33.0-37.0); MEAN CORPUSCULAR VOLUME 103.9 FL (81.0-99.0); MEAN PLATELET VOLUME 8.6 FL (7.4-10.4); RBC DISTRIBUTION WIDTH 15.6 % (11.5-14.5)
[2018-03-23 12:14] LABS: PT 15.7 SEC (9.4-12.5); PTT 21 SEC (25-37)
[2018-03-23 12:33] LABS: PLATELET COUNT 96 /CUMM (130-400); WHITE BLOOD CELL COUNT 6.1 /CUMM (4.8-10.8)
--- NOTE | 2018-03-23 12:43 | PN- Cardiology ---
Subjective Subjective: * Doing well without complaints. * Stable H/H Objective Vital Signs and I&Os Vital Signs Date Time Temp Pulse Resp B/P B/P Pulse O2 O2 Flow FiO2 Mean Ox Delivery Rate 03/23 1000 95 20 130/80 03/23 0919 97 138/80 03/23 0918 97 138/80 03/23 0800 97.3 97 20 138/80 03/23 0800 97.3 97 20 138/80 93 Room Air 03/23 0000 97.8 76 20 108/72 03/23 0000 96 Room Air Room Air 03/22 2300 97.2 72 20 108/74 96 Room Air Room Air 03/22 2116 76 20 108/72 03/22 2000 97.2 71 20 112/74 03/22 1600 95 Room Air 03/22 1600 98.0 68 20 100/42 95 Room Air Intake & Output 03/23 1600 03/23 0800 03/23 0000 03/22 1600 03/22 0800 03/22 0000 Intake Total 120 120 276 143.2 1460.9 Output Total 700 200 200 451 730 5127 Balance -700 -80 -80 -424 -756.8 60.9 Intake, Blood 330 Product Intake, IV 176 143.2 170.9 Intake, Oral 120 120 100 0 960 Number 0 2 0 0 Bowel Movements Output, Urine 700 200 200 443 877 1086 Patient 281 lb Weight Weight Bed scale Measurement Method Physical Exam: General: WD/obses female in NAD; alert and oriented x 3 Skin: diffuse purpura HEENT: NC/AT, PERRL, EOMI Neck: no JVD, no carotid bruit Heart: irregularly irregular Lungs: clear bilaterally Abdomen: soft, NT, +ve bowel sounds Extremities: no edema Assessment/Plan Assessment/Plan * This patient has chronic atrial fibrillation and ideally should be on chronic anticoagulation for stroke prophylaxis. She, for the most part tolerates this but, recently, has had a supratherapeutic INR combined with NSAID use. As such, she has GI bleeding and diffuse purpura. The patient was taking NSAIDS for foot pain and possible gout. I would treat this with allopurinol and colchicine. * No active bleeding noted on endoscopy. Restart chronic anticoagulation with Eliquis 2.5mg BID . Would not employ coumadin since control was poor. No NSAIDS. * Good rate control on current medications. * Okay for DC from a cardiac standpoint with follow up in office in one week. Continue telemetry? No
[2018-03-23] MEDS ORDERED: PROTONIX40 M3 PO (12:51)
--- NOTE | 2018-03-23 12:54 | Discharge Summary ---
Visit Information Visit Dates Admission Date: 03/20/18 Discharge Date: 03/23/18 Hospital Course Course Attending Physician: Robert Kerns MD Primary Care Physician: Philip MERCEDES,Julius Ren Hospital Course: A: 67-year-old F with a history of IBS-diarrhea predominant , afib on coumadin presenting for bright red blood per rectum in the setting of supratherapeutic INR with current use of NSAIDs. P: #GI bleed in the setting of NSAID use and elevated INR Her history of dark stools in the context of NSAID use and a supratherapeutic INR is concerning for upper GI bleed from NSAID induced ulcer precipitated by the elevated INR. Her intial H/H was 11.6/34.1 and inr was 5.45. She received vit k and ffp. She was found to be hypotensive and initially received 2L fluid bolus. Elevated BUN gives further credence to a a GI bleed. She was seen by GI and EGD revealed diffuse gastric mucosal atrophy with erosion and linear clean- based gastric ulcers. The patient was advised and switch from warfarin to Eliquis. She was advised to increase her protonix to BID (before dinner and breakfast). She was advised to follow up with GI. #Afib She agreed to switch from warfarin to Eliquis as noted above. She will be discharged with 2.5 mg twice a day per her preference. Given her recent GI bleed cardiology also recommended starting at 2.5mg BID and increasing to 5BID during her follow up cardiology visit. She was given a one-month trial box she was advised to follow-up with cardiology in one week. #Hx of etoh abuse Her daughter reports that the patient drinks about 4-5 glasses of wine/day. This is clinically significant as large amounts of alcohol consumption is associated with elevated INR and patients on warfarin. She was monitored on a CIWA protocol and Ativan when necessary. She was advised to decrease her alcohol intake. #NICHOLE The patient presented with a creatinine of 2.1. Her NICHOLE resolved after the 2L+ bolus of fluids. #Thrombocytopenia. Appears to be chronic. Prob splenic sequestration. Requires outpatient follow up #History of chronic diseases:IBS, gout, hypertension, diabetes, COPD, CHF. Continued lisinopril, lasix, metoprolol, cardizem restarted as bp improved. Continued atorvastatin, tramadol, albuterol, gabapentin. Treated with NovoLog sliding scale for diabetes during inpatient Allergies: Coded Allergies: aspirin (NAUSEA 05/26/16) colchicine (SEVERE DIARRHEA 03/20/18) shellfish derived (RED FACED 05/26/16) Significant Procedures: Endoscopy Procedure Medical History: unchanged Mental Status: alert/oriented Heart/Lung Eval Prior to Sedation: within normal limits Candidate for Sedation? Yes Procedure Date: 03/22/18 Procedure Type: EGD w/biopsy Microelectronics Assembler: MD Jason, Veronica Osorio ASA Classification: III Indications: 1. Melena 2. Acute Blood Loss Anemia 3. Chronic Use NSAIDs Instrument: diagnostic gastroscope Meds Received: MAC Patient's Tolerance: good Complications: none Extent Reached: second part of duodenum Procedure: Note: Informed consent was obtained prior to procedure. Risks and benefits of procedure were discussed with patient. Potential complications discussed included perforation, bleeding, abdominal pain, and adverse reaction to medications. It was explained that iany or all of these complications could result in the need for extended hospitalization, emergency surgery, transfusion of packed red blood cells (with the risk of HIV or hepatitis virus), intubation with mechanical ventilation, and possible need for antibiotics. It was further explained that an existing tumor polyp or mucosal abnormality might not be identified at the time of the procedure thus resulting in a missed opportunity for early diagnosis and treatment of a gastrointestinal malignancy or disease with possible interval development of a gastrointestinal cancer or other disease with possible worsening of clinical condition in the interval between endoscopies. It was also discussed that complications are not limited to those listed above. Possible alternatives to endoscopic treatment or evaluation were discussed. All questions were answered. Continuous EKG and blood pressure monitors were attached. Supplemental oxygen was provided with O2 Sat monitoring. Patient was placed in the left lateral decubitus position. A surgical timeout was performed. All persons in the room were identified. All concerns were expressed and answered. A bite block was placed in the mouth and sedation was administered by anesthesia and titrated to comfort prior to starting the procedure. The Olympus upper endoscope was advanced under direct vision to the level of the third portion of the duodenum. Esophagus: The esophagus had a normal mucosal vascular pattern throughout its entirety. The GE junction was identified and was normal. The Z line was located at 40 cm from the incisors and was nondisplaced Stomach: The stomach had diffuse mucosal atrophy throughout its entirety. Retroflexed view of the cardiofundic region revealed a normal mucosal and vascular pattern. There were normal rugae and normal distensibility. The pylorus was patent and easily intubated. Within the antrum there were scattered erosions with no stigmata of bleeding. There were 2 linear ulcers above the pylorus with two [facility] exudate and no stigmata of bleeding. Biopsies were obtained from the antrum, and gastric body to rule out H. Pylori. Duodenum: The duodenum was fully examined from bulb down to the third portion. There was a normal mucosal vascular pattern throughout. With the endoscope in the forward-viewing position, it was slowly withdrawn and all areas were re-inspected and findings are as described previously. Patient tolerated the procedure well. EBL: Minimal Specimens Removed: antrum, and gastric body to rule out H. Pylori. Findings: 1. Diffuse gastric mucosal atrophy with erosion 2. 2 linear clean-based gastric ulcers Impression: 1. Diffuse gastric mucosal atrophy with erosion 2. 2 linear clean-based gastric ulcers Recommendations: 1. Change Protonix to 40 mg by mouth every morning 2. Patient to be advised to avoid NSAIDs 3. Advance diet 4. Patient stable for discharge to home if diet tolerated 5. Patient follow-up with Dr. Gomez for biopsy review and further therapy is needed. DICTATED BY: Veronica Gomez MD DATE/TIME DICTATED:03/22/181309 INHALATION THERAPY TEACHER:MUKESH DATE/TIME TRANSCRIBED:03/22/181309 REPORT NUMBER:[id number] Disposition Summary Disposition Principal Diagnosis: GI bleed in the setting of NSAID use and elevated INR Additional Diagnosis: Afib Hx of etoh abuse NICHOLE Thrombocytopenia. Discharge Disposition: home or self care Discharge Instructions General Discharge Information Code Status: Full Code Patient's Diet: Heart healthy Patient's Activity: As tolerated Follow-Up Instructions/Appts: Please follow up with your PCP in 1-2 weeks Please follow up with Dr. Rojas in 1 week. Please follow up with your property management intern in 1 week. Please avoid NSAIDs Please start your eliquis tonight. Medications at Discharge Discharge Medications: Stop taking the following medications: Warfarin Sodium (Warfarin Sodium) 2 MG TABLET ORAL MoWeFr Qty = 90 Warfarin Sodium (Coumadin) 1 MG TABLET ORAL SuTuThSa Meloxicam (Meloxicam) 7.5 MG TABLET ORAL DAILY Pantoprazole Sodium (Pantoprazole Sodium) 40 MG TABLET. ORAL DAILY Qty = 90 Continue taking these medications: Diltiazem HCl (Cardizem Cd) 180 MG CAP.ER.24H 1 Capsule ORAL DAILY Qty = 90 Comments: Last Taken: 03/23/18 Time: 9 AM Metoprolol Tartrate (Metoprolol Tartrate) 100 MG TABLET 1 Tablet ORAL TWICE DAILY Qty = 180 Comments: Last Taken: 03/23/18 Time: 9 AM Gabapentin (Gabapentin) 300 MG CAPSULE 1 Capsule ORAL THREE TIMES DAILY Qty = 90 Comments: Last Taken: 03/23/18 Time: 9 AM Insulin Detemir (Levemir Flextouch) 100 UNIT/1 ML INSULN.PEN 30 Units Inject into fatty tissue Every Morning Qty = 15 Comments: NOT TAKEN Cyclobenzaprine HCl (Cyclobenzaprine HCl) 10 MG TABLET 1 Tablet ORAL TWICE DAILY Qty = 90 Comments: NOT GIVEN Hyoscyamine (Levsin) 0.125 MG TABLET 1 Tablet ORAL THREE TIMES DAILY as needed for ABD CRAMPS Qty = 90 Comments: NOT TAKEN Furosemide (Furosemide) 40 MG TABLET 1 Tablet ORAL DAILY Qty = 90 Comments: NOT TAKEN Mometasone Furoate (Nasonex) 17 GM SPRAY.PUMP 2 [place] Both sides of nose DAILY Qty = 17 Comments: NOT GIVEN Rosuvastatin Calcium (Crestor) 10 MG TABLET 1 Tablet ORAL DAILY Qty = 90 Comments: NOT GIVEN Lisinopril (Lisinopril) 10 MG TABLET 1 Tablet ORAL DAILY Qty = 90 Comments: Last Taken: 03/23/18 Time: 9 AM Latanoprost (Latanoprost) 2.5 ML DROPS 1 Drop In the eye Every night Qty = 8 Comments: NOT TAKEN Albuterol Sulfate (Proair Hfa) 90 MCG HFA.AER.AD 2 Puff Inhale through mouth EVERY 4-6 HOURS NEEDED as needed for BREATHING PROBLEMS Comments: Last Taken: 03/23/18 Time: 5 AM Multivit-Min/Folic Acid/Biotin (Women Multivit W-Biotin Gummy) 200 MCG-300 MCG TAB.CHEW 1 Tablet ORAL DAILY Comments: NOT GIVEN Potassium Chloride (Potassium Chloride) 10 MEQ TABLET.ER 1 Tablet ORAL DAILY Qty = 180 Comments: Last Taken: 03/23/18 Time: 9 AM Cholecalciferol (Vitamin D3) 1,000 UNIT TABLET 1 Tablet ORAL DAILY Comments: Last Taken: 03/23/18 Time: 9 AM Vitamin E Mixed (Vitamin E) 400 UNIT TABLET 1 Tablet ORAL DAILY Comments: NOT GIVEN Vance-3 Fatty Acids/Fish Oil (Fish Oil 1,200 MG Softgel) 360 MG-1,200 MG CAPSULE 1 Capsule ORAL TWICE DAILY Comments: NOT GIVEN Tramadol HCl (Tramadol HCl) 50 MG TABLET 1 Tablet ORAL 2 x Daily as needed as needed for PAIN Qty = 10 Comments: Last Taken: 03/23/18 Time: 5 AM Magnesium Oxide (Magnesium) 400 MG CAPSULE 1 Capsule ORAL DAILY Qty = 30 Comments: Last Taken: 03/23/18 Time: 9 AM Tramadol HCl (Tramadol HCl ER) 200 MG TAB.ER.24H 1 Tablet ORAL Every Morning Comments: NOT GIVEN Start taking the following new medications: Pantoprazole Sodium (Protonix) 40 MG TABLET.DR 1 Tablet ORAL 1/2 HR BEFORE BREAKFAST/DINNER Qty = 60 No Refills Comments: Last Taken: 03/23/18 Time: 9 AM Apixaban (Eliquis) 2.5 MG TABLET 1 Tablet ORAL TWICE DAILY Qty = 60 No Refills Comments: NOT GIVEN Copies To: Philip MERCEDES,Julius Ren
--- NOTE | 2018-03-23 14:10 | PN- Gastroenterology ---
Assessment/Plan GI Assessment/Recommendations: ASSESSMENT: 1. 2 small linear gastric ulcers likely due to NSAIDs 2. Atrophic gastritis 3. Acute blood loss anemia, H&H stable 4. Atrial fibrillation can resume anticoagulation. Started on Eliquis by cardiology 5. Foot pain --started on colchicine and allopurinol by cardiology for probable gout. RECOMMENDATIONS: 1. Patient stable for discharge 2. Patient follow-up with Dr. Doug Corona 3. Will await pathology from biopsies if positive for H. pylori will treat 4. Patient to be discharged on Protonix 40 mg by mouth twice a day which she will take 30-45 minutes before breakfast and 30-45 minutes before dinner. This is been discussed with patient. 5. Patient to avoid NSAIDs Subjective Subjective: Ms. Winchester is doing quite well. She is tolerating a diet. She has had no further melenic stools. Her H&H has remained stable. Objective Vital Signs and I&Os Vital Signs Date Time Temp Pulse Resp B/P B/P Pulse O2 O2 Flow FiO2 Mean Ox Delivery Rate 03/23 1000 95 20 130/80 03/23 0919 97 138/80 03/23 0918 97 138/80 03/23 0800 97.3 97 20 138/80 03/23 0800 97.3 97 20 138/80 93 Room Air 03/23 0000 97.8 76 20 108/72 03/23 0000 96 Room Air Room Air 03/22 2300 97.2 72 20 108/74 96 Room Air Room Air 03/22 2116 76 20 108/72 03/22 2000 97.2 71 20 112/74 03/22 1600 95 Room Air 03/22 1600 98.0 68 20 100/42 95 Room Air Intake & Output 03/23 1600 03/23 0400 03/22 1600 03/22 0400 03/21 1600 03/21 0400 Intake Total 120 120 419.2 1460.9 1625.6 0 Output Total 742 663 9742 1400 900 Balance -.8 60.9 725.6 0 Intake, Blood 330 340 Product Intake, IV 319.2 170.9 1285.6 0 Intake, Oral 120 120 100 960 0 Number 0 2 0 0 0 Bowel Movements Output, Urine 054 873 1283 1400 900 Patient 281 lb 288 lb Weight Weight Bed scale Bed scale Measurement Method Physical Exam General Appearance: well developed/nourished, no apparent distress, comfortable Respiratory: normal breath sounds, lungs clear Cardiovascular: irregularly irregular, normal S1 and S2 without rub, murmur, or gallop Abdomen: normal bowel sounds, soft, non-tender, no organomegaly Extremities: no edema Neurologic/Psychiatric: oriented x 3, normal mood/affect Skin: intact, normal color, warm/dry Current Medications: Current Medications Sig/Estella Start time Last Medication Dose Route Stop Time Status Admin Albuterol Sulfate 2 PUF Q4P PRN 03/21 1115 AC 03/23 INH 0516 Atorvastatin Calcium 10 MG DAILY 03/23 0900 AC 03/23 PO 0918 Cholecalciferol 1,000 IU DAILY 03/22 1859 AC 03/23 PO 0917 Diltiazem HCl 180 MG DAILY 03/21 1600 AC 03/23 PO 0918 Furosemide 40 MG DAILY 03/23 0900 AC PO Gabapentin 300 MG TID 03/21 0900 AC 03/23 PO 0918 Insulin Aspart 0 TIDAC 03/23 0800 AC 03/23 SC 1149 Insulin Aspart 4 UNITS .STK-MED ONE 03/22 1833 DC VA 03/22 1834 Insulin Human Regular 0 Q6 03/[address] 03/21 SC 1805 Lisinopril 10 MG DAILY 03/23 0900 AC 03/23 PO 0918 Lorazepam 0 Q1P PRN 03/21 0230 AC 03/22 IV 0727 Magnesium Oxide 400 MG DAILY 03/23 0900 AC 03/23 PO 0918 Magnesium Oxide 400 MG ONE ONE 03/23 0900 CAN PO 03/23 0901 Metoprolol Tartrate 100 MG BID 03/22 2100 AC 03/23 PO 0919 Pantoprazole Sodium 40 MG BID 03/22 2100 AC 03/23 IV 0919 Pantoprazole Sodium 40 MG Q5H 03/20 2300 DC 03/22 Sodium Chloride 100 ML IV 1049 Potassium Chloride 10 MEQ DAILY 03/23 0900 AC 03/23 PO 0918 Tramadol HCl 50 MG BID PRN 03/21 2100 AC 03/23 PO 0511 Results Pertinent Lab Results: Laboratory Tests 03/23 03/22 1134 0300 Chemistry Sodium (137 - 145 mmol/L) 144 140 Potassium (3.5 - 5.1 mmol/L) 4.2 4.0 Chloride (98 - 107 mmol/L) 105 103 Carbon Dioxide (22 - 30 mmol/L) 25 27 Anion Gap (5 - 16) 13 10 BUN (7 - 17 mg/dL) 19 H 29 H Creatinine (0.5 - 1.0 mg/dL) 1.1 H 1.2 H Estimated GFR (>60 ml/min) 50 L 45 L Glucose (65 - 99 mg/dL) 216 H 86 Calcium (8.4 - 10.2 mg/dL) 9.1 9.1 Phosphorus (2.5 - 4.5 mg/dL) 2.6 4.4 Magnesium (1.6 - 2.3 mg/dL) 1.3 L 1.6 Total Bilirubin (0.2 - 1.3 mg/dL) 0.9 0.7 AST (14 - 36 U/L) 27 24 ALT (9 - 52 U/L) 26 33 Albumin (3.5 - 5.0 g/dL) 3.5 3.3 L Coagulation PT (9.4 - 12.5 SEC) 15.7 H 18.6 H INR (0.90 - 1.19) 1.44 H 1.70 H APTT (25 - 37 SEC) 21 L 35 Hematology CBC w Diff NO MAN DIFF REQ NO MAN DIFF REQ WBC (4.8 - 10.8 /CUMM) 6.1 3.7 L RBC (4.20 - 5.40 /CUMM) 3.10 L 2.95 L Hgb (12.0 - 16.0 G/DL) 10.8 L 10.1 L Hct (37 - 47 %) 32.2 L 30.4 L MCV (81.0 - 99.0 FL) 103.9 H 103.1 H MCH (27.0 - 31.0 PG) 34.8 H 34.4 H MCHC (33.0 - 37.0 G/DL) 33.5 33.4 RDW (11.5 - 14.5 %) 15.6 H 15.7 H Plt Count (130 - 400 /CUMM) 96 L 84 L MPV (7.4 - 10.4 FL) 8.6 8.2 Gran % (42.2 - 75.2 %) 71.3 54.0 Lymphocytes % (20.5 - 51.1 %) 16.7 L 28.9 Monocytes % (1.7 - 9.3 %) 7.5 9.8 H Eosinophils % (0 - 5 %) 3.9 7.0 H Basophils % (0.0 - 2.0 %) 0.6 0.3 Absolute Granulocytes (1.4 - 6.5 /CUMM) 4.4 2.0 Absolute Lymphocytes (1.2 - 3.4 /CUMM) 1.0 L 1.1 L Absolute Monocytes (0.10 - 0.60 /CUMM) 0.5 0.4 Absolute Eosinophils (0.0 - 0.7 /CUMM) 0.2 0.3 Absolute Basophils (0.0 - 0.2 /CUMM) 0 0 03/21 03/21 03/21 1850 1545 1236 Coagulation PT (9.4 - 12.5 SEC) 22.9 H 29.7 H INR (0.90 - 1.19) 2.09 H 2.70 H APTT (25 - 37 SEC) 46 H Hematology CBC w Diff NO MAN DIFF REQ WBC (4.8 - 10.8 /CUMM) 3.5 L RBC (4.20 - 5.40 /CUMM) 3.04 L Hgb (12.0 - 16.0 G/DL) 10.5 L Hct (37 - 47 %) 31.2 L MCV (81.0 - 99.0 FL) 102.5 H MCH (27.0 - 31.0 PG) 34.6 H MCHC (33.0 - 37.0 G/DL) 33.8 RDW (11.5 - 14.5 %) 15.8 H Plt Count (130 - 400 /CUMM) 94 L MPV (7.4 - 10.4 FL) 8.4 Gran % (42.2 - 75.2 %) 45.6 Lymphocytes % (20.5 - 51.1 %) 35.8 Monocytes % (1.7 - 9.3 %) 9.3 Eosinophils % (0 - 5 %) 8.5 H Basophils % (0.0 - 2.0 %) 0.8 Absolute Granulocytes (1.4 - 6.5 /CUMM) 1.6 Absolute Lymphocytes (1.2 - 3.4 /CUMM) 1.2 Absolute Monocytes (0.10 - 0.60 /CUMM) 0.3 Absolute Eosinophils (0.0 - 0.7 /CUMM) 0.3 Absolute Basophils (0.0 - 0.2 /CUMM) 0 03/21 03/21 0622 0600 Coagulation PT Cancelled INR Cancelled Toxicology Urine Opiates Screen (>2000 NG/ML) 138 Methadone Screen (>300 NG/ML) 71 Barbiturate Screen (>200 NG/ML) < 60 Ur Phencyclidine Scrn (>25 NG/ML) 7.50 Amphetamines Screen (>1000 NG/ML) < 100 U Benzodiazepines Scrn (>200 NG/ML) < 85 Urine Cocaine Screen (>300 NG/ML) < 50 Urine Cannabis Screen (>50 NG/ML) < 5.00 Urines Urine Color (YEL,AMB,STR) YEL Urine Clarity (CLEAR) CLEAR Urine pH (5.0 - 8.0) 6.0 Ur Specific [place] (1.001 - 1.035) 1.015 Urine Protein (NEG,<30 MG/DL) NEG Urine Ketones (NEG) NEG Urine Nitrite (NEG) NEG Urine Bilirubin (NEG) NEG Urine Urobilinogen (0.1 - 1.0 EU/dl) 0.2 Ur Leukocyte Esterase (NEG) SMALL H Ur Microscopic SEDIMENT EXAMINED Urine WBC (0 - 2 /HPF) 3-5 H Ur Epithelial Cells (NONE,FEW) FEW Urine Bacteria (NEG/NONE) FEW H Hyaline Casts (0/LPF) FEW H Urine Hemoglobin (NEG) NEG Urine Glucose (N MG/DL) NEG 03/21 03/21 0352 0300 Chemistry Sodium (137 - 145 mmol/L) 140 Potassium (3.5 - 5.1 mmol/L) 4.2 Chloride (98 - 107 mmol/L) 103 Carbon Dioxide (22 - 30 mmol/L) 26 Anion Gap (5 - 16) 12 BUN (7 - 17 mg/dL) 39 H Creatinine (0.5 - 1.0 mg/dL) 2.0 H Estimated GFR (>60 ml/min) 25 L Glucose (65 - 99 mg/dL) 100 H Calcium (8.4 - 10.2 mg/dL) 9.0 Phosphorus (2.5 - 4.5 mg/dL) 5.3 H Magnesium (1.6 - 2.3 mg/dL) 1.8 Total Bilirubin (0.2 - 1.3 mg/dL) 0.6 AST (14 - 36 U/L) 21 ALT (9 - 52 U/L) 25 Troponin I (< 0.11 ng/ml) < 0.01 Albumin (3.5 - 5.0 g/dL) 3.1 L Coagulation PT (9.4 - 12.5 SEC) 63.0 *H INR (0.90 - 1.19) 5.68 *H APTT Cancelled Hematology CBC w Diff NO MAN DIFF REQ WBC (4.8 - 10.8 /CUMM) 4.7 L RBC (4.20 - 5.40 /CUMM) 3.02 L Hgb (12.0 - 16.0 G/DL) 10.5 L Hct (37 - 47 %) 30.7 L MCV (81.0 - 99.0 FL) 101.6 H MCH (27.0 - 31.0 PG) 34.8 H MCHC (33.0 - 37.0 G/DL) 34.2 RDW (11.5 - 14.5 %) 15.6 H Plt Count (130 - 400 /CUMM) 106 L MPV (7.4 - 10.4 FL) 8.6 Gran % (42.2 - 75.2 %) 41.1 L Lymphocytes % (20.5 - 51.1 %) 40.2 Monocytes % (1.7 - 9.3 %) 9.7 H Eosinophils % (0 - 5 %) 8.3 H Basophils % (0.0 - 2.0 %) 0.7 Absolute Granulocytes (1.4 - 6.5 /CUMM) 1.9 Absolute Lymphocytes (1.2 - 3.4 /CUMM) 1.9 Absolute Monocytes (0.10 - 0.60 /CUMM) 0.5 Absolute Eosinophils (0.0 - 0.7 /CUMM) 0.4 Absolute Basophils (0.0 - 0.2 /CUMM) 0 05/25 2154 Chemistry Sodium (137 - 145 mmol/L) 142 Potassium (3.5 - 5.1 mmol/L) 4.5 Chloride (98 - 107 mmol/L) 99 Carbon Dioxide (22 - 30 mmol/L) 23 Anion Gap (5 - 16) 20 H BUN (7 - 17 mg/dL) 40 H Creatinine (0.5 - 1.0 mg/dL) 2.1 H Estimated GFR (>60 ml/min) 24 L BUN/Creatinine Ratio (7 - 25 %) 19.0 Glucose (65 - 99 mg/dL) 140 H Calcium (8.4 - 10.2 mg/dL) 9.3 Magnesium (1.6 - 2.3 mg/dL) 1.7 Iron (37 - 170 ug/dL) 132 TIBC (265 - 497 ug/dL) 337 Ferritin (11.1 - 264 ng/mL) 189.0 Total Bilirubin (0.2 - 1.3 mg/dL) 0.8 AST (14 - 36 U/L) 33 ALT (9 - 52 U/L) 23 Alkaline Phosphatase (<127 U/L) 91 Troponin I (< 0.11 ng/ml) < 0.01 Total Protein (6.3 - 8.2 g/dL) 6.3 Albumin (3.5 - 5.0 g/dL) 3.8 Globulin (1.9 - 4.2 gm/dL) 2.5 Albumin/Globulin Ratio (1.1 - 2.2 %) 1.5 Vitamin B12 (239 - 931 pg/mL) 476 Folate (2.76 - 20.0 ng/mL) > 20.0 H TSH (0.270 - 4.200 uIU/mL) 9.550 H Free T4 (0.78 - 2.44 ng/dL) 0.92 Coagulation PT (9.4 - 12.5 SEC) 60.4 *H INR (0.90 - 1.19) 5.45 *H APTT (25 - 37 SEC) 57 H Hematology CBC w Diff NO MAN DIFF REQ WBC (4.8 - 10.8 /CUMM) 5.1 RBC (4.20 - 5.40 /CUMM) 3.35 L Hgb (12.0 - 16.0 G/DL) 11.6 L Hct (37 - 47 %) 34.1 L MCV (81.0 - 99.0 FL) 101.6 H MCH (27.0 - 31.0 PG) 34.7 H MCHC (33.0 - 37.0 G/DL) 34.2 RDW (11.5 - 14.5 %) 15.7 H Plt Count (130 - 400 /CUMM) 129 L MPV (7.4 - 10.4 FL) 8.3 Gran % (42.2 - 75.2 %) 52.0 Lymphocytes % (20.5 - 51.1 %) 32.0 Monocytes % (1.7 - 9.3 %) 8.7 Eosinophils % (0 - 5 %) 6.5 H Basophils % (0.0 - 2.0 %) 0.8 Absolute Granulocytes (1.4 - 6.5 /CUMM) 2.6 Absolute Lymphocytes (1.2 - 3.4 /CUMM) 1.6 Absolute Monocytes (0.10 - 0.60 /CUMM) 0.4 Absolute Eosinophils (0.0 - 0.7 /CUMM) 0.3 Absolute Basophils (0.0 - 0.2 /CUMM) 0 Toxicology Serum Alcohol (<10 MG/DL) 18.0
== END 2018-03-23 14:50 | DRG 384 ==
LOC: ERH 21:22 → CRI 22:48 → ERHI 22:48 → ENRESERV 03-21 00:07 → CRI 03-21 01:19 → ENTRNSPT 03-23 14:43 → EDTRNSPTSTS 03-23 14:44 → CRI 03-23 14:50 → CMPTRNSPT 03-23 14:58
PROVIDERS: Pediatrics; Student in an Organized Health Care Education/Training Program
PROC: 30233K1 Transfusion of Nonautologous Frozen Plasma into Peripheral Vein, Percutaneous Approach (ICD-10-PCS; 2018-03-21)
PROC: 0DB68ZX Excision of Stomach, Via Natural or Artificial Opening Endoscopic, Diagnostic (ICD-10-PCS; principal; 2018-03-22)
PROC: 0DB78ZX Excision of Stomach, Pylorus, Via Natural or Artificial Opening Endoscopic, Diagnostic (ICD-10-PCS; 2018-03-22)
DX: K25.9 Gastric ulcer, unspecified as acute or chronic, without hemorrhage or perforation (principal); D62 Acute posthemorrhagic anemia; I13.0 Hypertensive heart and chronic kidney disease with heart failure and stage 1 through stage 4 chronic kidney disease, or unspecified chronic kidney disease; D68.9 Coagulation defect, unspecified; N17.9 Acute kidney failure, unspecified; Z68.42 Body mass index [BMI] 45.0-49.9, adult; K92.2 Gastrointestinal hemorrhage, unspecified; K58.0 Irritable bowel syndrome with diarrhea; E13.42 Other specified diabetes mellitus with diabetic polyneuropathy; Z79.4 Long term (current) use of insulin; H40.9 Unspecified glaucoma; J44.9 Chronic obstructive pulmonary disease, unspecified; K21.9 Gastro-esophageal reflux disease without esophagitis; D69.6 Thrombocytopenia, unspecified; Z72.89 Other problems related to lifestyle; M10.9 Gout, unspecified; Z79.01 Long term (current) use of anticoagulants; I50.9 Heart failure, unspecified; E78.5 Hyperlipidemia, unspecified; K29.80 Duodenitis without bleeding; I48.0 Paroxysmal atrial fibrillation; N18.3 Chronic kidney disease, stage 3 (moderate); E11.22 Type 2 diabetes mellitus with diabetic chronic kidney disease; Z79.1 Long term (current) use of non-steroidal anti-inflammatories (NSAID); K29.40 Chronic atrophic gastritis without bleeding; E66.01 Morbid (severe) obesity due to excess calories; I95.9 Hypotension, unspecified; T39.395A Adverse effect of other nonsteroidal anti-inflammatory drugs [NSAID], initial encounter; Y92.89 Other specified places as the place of occurrence of the external cause
CPT/HCPCS: CCU; ERO; 36415; 36592; 71045; 80307; 81001; 82436; 93005; 93010; G0480; J0131; J1815; J3490

== ENCOUNTER 2018-04-01 13:35 | Emergency (ER) | payer OTHER, MEDICARE ==
[~2018-04-01 13:35] MED LIST changes: +ELIQUIS2.5 M1 PO; +PROTONIX40 M3 PO; +TRAMADOL HCL E200 MG PO
--- NOTE | 2018-04-01 14:03 | ED CARDIAC/CP/PALPITATIONS ---
History of Present Illness General Chief Complaint: General Adult Stated Complaint: BIBA FOR CHEST PAIN; CHF Source: patient, old records Exam Limitations: no limitations Vital Signs & Intake/Output Vital Signs & Intake/Output Vital Signs Date Time Temp Pulse Resp B/P B/P Pulse O2 O2 Flow FiO2 Mean Ox Delivery Rate 04/01 1610 97.0 76 18 136/78 97 Room Air 04/01 1342 97.0 88 18 140/80 98 Room Air Allergies Coded Allergies: aspirin (NAUSEA 05/26/16) colchicine (SEVERE DIARRHEA 03/20/18) shellfish derived (RED FACED 05/26/16) Reconcile Medications Albuterol Sulfate (Proair Hfa) 90 MCG HFA.AER.AD 2 PUF INH Q4-6 PRN PRN BREATHING PROBLEMS (Reported) Apixaban (Eliquis) 2.5 MG TABLET 1 TAB PO BID AFIB Cholecalciferol (Vitamin D3) 1,000 UNIT TABLET 1 TAB PO DAILY SUPPLEMENT ( Reported) Cyclobenzaprine HCl 10 MG TABLET 1 TAB PO BID MUSCLE SPASMS (Reported) Diazepam (Valium) 2 MG TABLET 1 TAB PO BID PRN MUSCLE RELAXOR Diltiazem HCl (Cardizem Cd) 180 MG CAP.ER.24H 1 CAP PO DAILY HEART (Reported) Furosemide 40 MG TABLET 1 TAB PO DAILY DIURETIC (Reported) Gabapentin 300 MG CAPSULE 1 CAP PO TID NERVE PAIN (Reported) Hyoscyamine (Levsin) 0.125 MG TABLET 1 TAB PO TID PRN ABD CRAMPS (Reported) Insulin Detemir (Levemir Flextouch) 100 UNIT/1 ML INSULN.PEN 30 UNITS SC QAM DIABETES (Reported) Latanoprost 2.5 ML DROPS 1 GTT OPH QPM BOTH EYES (Reported) Lisinopril 10 MG TABLET 1 TAB PO DAILY BP (Reported) Magnesium Oxide (Magnesium) 400 MG CAPSULE 1 CAP PO DAILY hypomagnesemia Metoprolol Tartrate 100 MG TABLET 1 TAB PO BID HEART/BP (Reported) Mometasone Furoate (Nasonex) 17 GM SPRAY.PUMP 2 SPRAY NASB DAILY ALLERGIES ( Reported) Multivit-Min/Folic Acid/Biotin (Women Multivit W-Biotin Gummy) 200 MCG-300 MCG TAB.CHEW 1 TAB PO DAILY SUPPLEMENT (Reported) [place]-3 Fatty Acids/Fish Oil (Fish Oil 1,200 MG Softgel) 360 MG-1,200 MG CAPSULE 1 CAP PO BID SUPPLEMENT (Reported) Pantoprazole Sodium (Protonix) 40 MG TABLET.DR 1 TAB PO BID GI (Reported) Potassium Chloride 10 MEQ TABLET.ER 1 TAB PO DAILY SUPPLEMENT (Reported) Prednisone 50 MG TABLET 1 TAB PO DAILY TEMPORAL ARTERITIS Rosuvastatin Calcium (Crestor) 10 MG TABLET 1 TAB PO DAILY CHOLESTEROL ( Reported) Tramadol HCl (Tramadol HCl ER) 200 MG TAB.ER.24H 1 TAB PO QAM PAIN (Reported) Tramadol HCl 50 MG TABLET 1 TAB PO BIDP PRN PAIN Vitamin E Mixed (Vitamin E) 400 UNIT TABLET 1 TAB PO DAILY SUPPLEMENT ( Reported) Triage Note: 67F BIBA FOR CP STARTING YESTERDAY AND NEW ONSET NECK PAIN SINCE THIS AM WITH PAIN TO TOUCH AND WITH MOVEMENT. MODERATE SWELLING BELOW NEAR C7-T2 AREA WHICH PT IS UNSURE IF IS HER BASELINE. DENIES KNOWN INJURY OR TRAUMA. HX CHF AND AFIB, ARRIVES WITH SIGNIFICANT LOWER EXT EDEMA AND REPORTS SHE HAS NOT BEEN TAKING HER LASIX DUE TO PAIN. RATE CONTROLLED AFIB ON CM ON ARRIVAL. HOSPITALIZED LATE FEBRUARY FOR GI BLEED WHILE ON COUMADIN, NOW ON ELOQUIS 5MG BID Triage Nurses Notes Reviewed? yes Onset: Gradual Duration: getting worse Timing: recent history Radiation: no radiation Activities at Onset: activity HPI: Patient is a 67-year-old female with past medical history of atrial fibrillation currently and requests which she was recently admitted and discharged from [place] emergency room approximately 2 weeks ago for concerns of a GI bleed likely due to meloxicam patient had endoscopy showing 2 small gastric ulcers patient presents emergency room with a 3 DAY history of gradual onset of bilateral neck pain with associated symptoms mild headache. Patient states that she woke up with neck stiffness denies any trauma or mechanism of injury States movements make worse Patient is able tolerate by mouth denies any photophobia chest pain arm pain jaw pain fever chills hemoptysis shortness of breath cough. Patient took previous prescribed tramadol and Tylenol with no relief of symptoms. (Michael Medellin) Past History Travel History Traveled to [place] past 21 day No Medical History Any Pertinent Medical History? 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 MOTHER (pancreatic ca). Hx Contributory? No (Michael Medellin) Review of Systems Review of Systems Constitutional: Reports: no symptoms. EENTM: Reports: no symptoms. Respiratory: Reports: no symptoms. Cardiovascular: Reports: no symptoms. GI: Reports: no symptoms. Genitourinary: Reports: no symptoms. Musculoskeletal: Reports: see HPI, muscle pain, muscle stiffness, neck pain. Skin: Reports: no symptoms. Neurological/Psychological: Reports: no symptoms. Hematologic/Endocrine: Reports: no symptoms. Immunologic/Allergic: Reports: no symptoms. All Other Systems: Reviewed and Negative (Michael Medellin) Physical Exam Physical Exam General Appearance: no apparent distress, obese Head: atraumatic, TENDERNESS TO PALPATION OF RIGHT TEMPORAL REGION NO PALPABLE CORD. Eyes: Bilateral: normal appearance. 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 No CVA/TIA Diagnosis No Sepsis Present: No Sepsis Focused Exam Completed? No (Michael Medellin) Progress Differential Diagnosis: AMI, aortic dissection, atrial fibrillation, CHF/pulm edema, costochondritis, hyperkalemia, hypovolemia, hyperthyroid, hyperventilation, intracranial hemorrhage, musculoskeletal pain, myocarditis, pancreatitis, pericarditis, pneumonia, pneumothorax, PSVT, pulmonary embolism, PUD/GERD, PVCs/PACs, respiratory failure, sepsis, unstable angina Plan of Care: Orders Procedure Date/time Status [facility] SED RATE 04/01 1428 Complete TROPONIN LEVEL 04/01 1427 Complete COMPREHENSIVE METABOLIC PANEL 04/01 1427 Complete CBC WITHOUT DIFFERENTIAL 04/01 1427 Complete B-TYPE NATRIURETIC PEP (BNP) 04/01 142 Complete EKG 04/01 1337 Active Laboratory Tests 04/01/18 1437: ESR Westergren 77 H 04/01/18 1437: Anion Gap 15, Estimated GFR > 60, BUN/Creatinine Ratio 18.8, Glucose 128 H, Calcium 9.2, Total Bilirubin 1.0, AST 20, ALT 22, Alkaline Phosphatase 89, Troponin I < 0.01, Jii-O-Rxotfausqdl Pept 1980 H, Total Protein 6.4, Albumin 3.6, Globulin 2.8, Albumin/Globulin Ratio 1.3, CBC w Diff NO MAN DIFF REQ, RBC 3.34 L, MCV 102.8 H, MCH 34.9 H, MCHC 33.9, RDW 15.8 H, MPV 8.2, Gran % 76.4 H, Lymphocytes % 13.9 L, Monocytes % 8.4, Eosinophils % 0.4, Basophils % 0.9, Absolute Granulocytes 6.2, Absolute Lymphocytes 1.1 L, Absolute Monocytes 0.7 H, Absolute Eosinophils 0, Absolute Basophils 0.1 Patient currently on initial examination for some complete bedside no apparent distress patient has reproducible pain to bilateral paralumbar muscular neck region and stiff neck no signs of infection No concerns of meningitis Patient was given morphine with relief of symptoms I reviewed all x-ray findings showing degeneration with patient Patient does have mild point tenderness to all regions of the neck and temporal region My suspicion of temporal arteritis is low however due to elevated sedimentation rate and patient's symptoms with no ocular or visionary defects that she will be treated with prednisone and was strongly advised to follow-up with Dr. Corbett. Upon discharge patient looks well no apparent distress, discussed plan with Dr. Tucker who agrees Patient had normal steady gait upon discharge Diagnostic Imaging: Viewed by Me: Radiology Read. Radiology Impression: no acute abnormality Initial ED EKG: AFIB (82 BPM) Comments: PATIENT: JONATHAN YOUSIF PRESENT AGE: 67 PATIENT ACCOUNT NO: [id number] : 52 LOCATION: [facility] ORDERING PHYSICIAN: Michael GALLEGOS SERVICE DATE: 04/01/18 EXAM TYPE: RAD - XRY-CERVICAL SPINE TRAUMA EXAMINATION: XR CERVICAL SPINE CLINICAL INFORMATION: Neck pain. COMPARISON: Cervical spine 05/09/2017. TECHNIQUE: Lateral. AP. Odontoid. Swimmer's. FINDINGS: Vertebrae have normal height, there is no fracture. There is reversal the normal lordotic curve of the cervical spine. There is degenerative spondylosis. Disc height narrowing with endplate spurring is pronounced at C5-C6 and C6-C7. There is multilevel facet joint arthrosis bilaterally, most severe at the upper cervical spine. Compared to the prior study of 05/09/2017 there is been no substantial change. IMPRESSION: There is advanced multilevel spondylosis of the cervical spine . No change since exam of 05/09/2017. No acute abnormality. DICTATED BY: Carlos Ford MD DATE/TIME DICTATED:04/01/181517 CONTACT CENTER REP:AJITH DATE/TIME TRANSCRIBED:04/01/18 (Michael Medellin) Departure Departure Disposition: HOME OR SELF CARE Condition: Stable Clinical Impression Primary Impression: Neck pain Secondary Impressions: Temporal arteritis Referrals: Philip MERCEDES,Julius Ren (PCP/Family) Aric MERCEDES,Elliot Smith Additional Instructions: As discussed continue home medications as directed begin the prescription of prednisone as directed and begin the prescription of Valium for breakthrough pain and muscle relaxation relief. Prescription is waiting at [place] [facility]. Tomorrow please follow up with irrigator overhead Dr. Corbett for further evaluation treatment. Departure Forms: Customer Survey General Discharge Information Prescriptions: Current Visit Scripts Prednisone 1 TAB PO DAILY #21 TAB Diazepam (Valium) 1 TAB PO BID PRN MUSCLE RELAXOR #6 TAB (Michael Medellin) PA/CENTER MEDICAL DIRECTOR Co-Sign Statement Statement: ED Attending supervision documentation- [] I saw and evaluated the patient. I have also reviewed all the pertinent lab results and diagnostic results. I agree with the findings and the plan of care as documented in the PA's/CENTER MEDICAL DIRECTOR's documentation. [x] I have reviewed the ED Record and agree with the PA's/CENTER MEDICAL DIRECTOR's documentation. [] Additions or exceptions (if any) to the PAs/CENTER MEDICAL DIRECTOR's note and plan are summarized below: [] (Selwyn Tucker DO) Critical Care Note Critical Care Note Critical Care Time: 30-74 min (Michael Medellin)
[2018-04-01 14:48] LABS: ABSOLUTE BASOPHIL COUNT 0.1 /CUMM (0.0-0.2); ABSOLUTE EOSINOPHIL COUNT 0 /CUMM (0.0-0.7); ABSOLUTE GRANULOCYTE CT 6.2 /CUMM (1.4-6.5); ABSOLUTE LYMPH COUNT 1.1 /CUMM (1.2-3.4); ABSOLUTE MONOCYTE COUNT 0.7 /CUMM (0.10-0.60); BASOPHIL % 0.9 % (0.0-2.0); EOSINOPHIL % 0.4 % (0-5); GRANULOCYTE % 76.4 % (42.2-75.2); HEMATOCRIT 34.4 % (37-47); MEAN CORPUSCULAR HGB 34.9 PG (27.0-31.0); MEAN CORPUSCULAR HGB CONC 33.9 G/DL (33.0-37.0); MEAN CORPUSCULAR VOLUME 102.8 FL (81.0-99.0); MEAN PLATELET VOLUME 8.2 FL (7.4-10.4); PLATELET COUNT 192 /CUMM (130-400); RBC DISTRIBUTION WIDTH 15.8 % (11.5-14.5); RED BLOOD CELL CT 3.34 /CUMM (4.20-5.40); WHITE BLOOD CELL COUNT 8.1 /CUMM (4.8-10.8)
--- NOTE | 2018-04-01 15:25 | RADIOLOGY REPORT ---
EXAMINATION: XR CERVICAL SPINE CLINICAL INFORMATION: Neck pain. COMPARISON: Cervical spine 05/09/2017. TECHNIQUE: Lateral. AP. Odontoid. Swimmer's. FINDINGS: Vertebrae have normal height, there is no fracture. There is reversal the normal lordotic curve of the cervical spine. There is degenerative spondylosis. Disc height narrowing with endplate spurring is pronounced at C5-C6 and C6-C7. There is multilevel facet joint arthrosis bilaterally, most severe at the upper cervical spine. Compared to the prior study of 05/09/2017 there is been no substantial change. IMPRESSION: There is advanced multilevel spondylosis of the cervical spine . No change since exam of 05/09/2017. No acute abnormality.
[2018-04-01] MEDS ORDERED: PROTONIX40 M3 PO (15:36)
[2018-04-01 16:10] VITALS: BP 136/78
[2018-04-01] MEDS ORDERED: PREDNISONE50 M1 PO (16:26)
[2018-04-01] MEDS ORDERED: VALIUM2 M1 PO (16:26)
== END 2018-04-01 16:47 ==
LOC: ERH 13:35
PROVIDERS: Physician Assistant
DX: M31.6 Other giant cell arteritis (principal); M54.2 Cervicalgia
CPT/HCPCS: 72050; 93005; 93010; 96374; 96376